=== PATIENT | male | born 1960 | race Caucasian/White ===

== ENCOUNTER 2022-08-23 07:22 | Emergency (ER) | payer MEDICARE ==
[2022-08-23 07:37] VITALS: RESP 20; TEMP 98
[2022-08-23] MEDS ORDERED: methylPREDNISolone SOD SUCCI 125 MG/2 ML VIAL IM ONE (07:47)
[2022-08-23] MEDS ORDERED: KETOROLAC 15 MG/ML 1 ML VIAL IM STA (07:47)
--- NOTE | 2022-08-23 07:49 | ED ---
General Adult HPI - General Chief complaint: Extremity Problem,Nontraumatic Stated complaint: Right wrist pain Time Seen by Provider: 08/23/22 07:38 Source: patient, RN notes reviewed Mode of arrival: ambulatory Limitations: no limitations - History of Present Illness Initial comments: Patient is a pleasant 62-year-old male presenting to the emergency department with concerns with right wrist pain. Onset of symptoms to couple days ago while doing aluminum work on the garage. Patient did take one steroid dose with improvement of symptoms however symptoms have returned. Patient feels swollen. Discomfort is greatly increased with movement and mild at rest. Patient does have history of similar symptoms previously with his left wrist and needed carpal tunnel surgery. Patient does have some chronic arthritis however not as significant as this. No erythema. No fever. - Related Data Allergies Allergy/AdvReac Type Severity Reaction Status Date / Time No Known Allergies Allergy Verified 08/23/22 07:36 Review of Systems ROS Statement: Those systems with pertinent positive or pertinent negative responses have been documented in the HPI. ROS Other: All systems not noted in ROS Statement are negative. Constitutional: Denies: fever Eyes: Denies: eye pain ENT: Denies: ear pain Respiratory: Denies: cough Cardiovascular: Denies: chest pain Endocrine: Denies: fatigue Gastrointestinal: Denies: abdominal pain Genitourinary: Denies: dysuria Musculoskeletal: Reports: as per HPI Skin: Denies: rash Past Medical History Past Medical History: No Reported History History of Any Multi-Drug Resistant Organisms: None Reported Past Surgical History: Adenoidectomy, Cholecystectomy, Joint Replacement, Orthopedic Surgery, Tonsillectomy Additional Past Surgical History / Comment(s): Spinal fusion Past Psychological History: No Psychological Hx Reported Smoking Status: Current every day smoker Past Alcohol Use History: Occasional Past Drug Use History: None Reported General Exam Limitations: no limitations General appearance: alert, in no apparent distress Head exam: Present: normocephalic Eye exam: Present: normal appearance Neck exam: Present: normal inspection Respiratory exam: Present: normal lung sounds bilaterally Cardiovascular Exam: Present: regular rate, normal rhythm Expanded Peripheral pulses: 2+: Radial (R) GI/Abdominal exam: Present: soft. Absent: tenderness Extremities exam: Present: tenderness (Right wrist, diffuse. Some tenderness right dorsal thenar eminence.), other (Range of motion slightly limited secondary to pain. [employer] strength also limited by pain. No erythema. No warmth. ) Neurological exam: Present: alert Psychiatric exam: Present: normal affect, normal mood Skin exam: Present: normal color. Absent: rash, erythema Course Vital Signs 08/23/22 07:34 Temperature 98 F Pulse Rate 76 Respiratory 20 Rate Blood Pressure 191/102 O2 Sat by Pulse 99 Oximetry Procedures - Orthopedic Splinting/Casting Injury #1 Side: right Upper Extremity Injury Location: short arm, wrist Upper Extremity Immobilizer: volar splint Medical Decision Making - Radiology Data Radiology results: image reviewed (Hemorrhage also took by myself reveals apparent arthritis.) Disposition Clinical Impression: Wrist arthralgia Disposition: HOME SELF-CARE Condition: Stable Instructions (If sedation given, give patient instructions): Wrist Injury (ED), Osteoarthritis (ED) Additional Instructions: Please follow-up with primary care physician and orthopedics being the week. Ice to affected area. Take prednisone from home, 20 mg daily for 4 days total. Return for increased pain, swelling, color change, fever, worsening symptoms or other concerns. Is patient prescribed a controlled substance at d/c from ED?: No Referrals: Nonstaff,Physician [Primary Care Provider] - 1-2 days Antony Adhikari PAC [PHYSICIAN SMT TECHNICIAN] - 1-2 days Time of Disposition: 08:38
--- NOTE | 2022-08-23 08:21 | XR ---
EXAMINATION TYPE: XR wrist complete RT DATE OF EXAM: 08/23/2022 CLINICAL HISTORY: pain TECHNIQUE: Frontal, lateral and oblique images of the right wrist are obtained. COMPARISON: None. FINDINGS: There is no acute fracture/dislocation evident. IMPRESSION: There is no acute fracture seen. There is a degenerative change of the radiocarpal joint space and ra dioulnar joint spaces. On the lateral projection there is a dorsal placement of the distal ulna relat dorothy to the radius likely related to chronic subluxation. Correlate clinically. There is remodeling of the medial surface of the distal radius. Hypertrophic changes of the ulna. Soft tissue swelling seen . Intercarpal joint space narrowing noted as well. Moderate degenerative change of first carpal metac arpal joint space. IMPRESSION: 1. No evidence for acute fracture. 2. Advanced degenerative changes as discussed above. ICD 10 NO FRACTURE, INITIAL EVALUATION
[2022-08-23 09:13] VITALS: BP 148/98; PULSE 72
== END 2022-08-23 08:50 | disposition home or self-care (01) ==
LOC: EC 07:22
DX: M25.531 Pain in right wrist (principal); F17.200 Nicotine dependence, unspecified, uncomplicated
CPT/HCPCS: 99283; 29125; 73110; 96372 ×2; J2930; J1885

== ENCOUNTER 2023-01-23 05:45 | Emergency (ER) | payer MEDICARE ==
[2023-01-23 05:54] VITALS: RESP 18; TEMP 97.7
[2023-01-23] MEDS ORDERED: methylPREDNISolone SOD SUCCI 125 MG/2 ML VIAL IM ONE (06:04)
[2023-01-23] MEDS ORDERED: KETOROLAC 15 MG/ML 1 ML VIAL IM STA (06:04)
--- NOTE | 2023-01-23 06:17 | ED ---
Extremity Problem HPI - General Chief complaint: Extremity Problem,Nontraumatic Stated complaint: Right Wrist Pain Time Seen by Provider: 01/23/23 05:56 Source: patient, RN notes reviewed Mode of arrival: ambulatory Limitations: no limitations - History of Present Illness Initial comments: This is a 62-year-old male who presents to the emergency department for right wrist pain. Denies any injuries. Patient reports a history of arthritis in the right wrist. States that he was evaluated here last year in August for the same problem. He received a shot of steroids followed by a prescription for prednisone and put in a splint. States that this was very helpful. He tried to follow up with orthopedics, but states that they continued to play phone tag. Over the last day, he states that it has started to swell and flareup again. He did rewrap the wrist in the splint that he was given last time. States that keeping it immobilized has been helpful. However he states that the pain has kept him up at night. Denies any fevers, chills, sore throat, cough, dyspnea, chest pain, palpitations, abdominal pain, nausea, vomiting, diarrhea, back pain, or headaches. MD Complaint: extremity pain, extremity swelling Location: right, upper extremity History of Same: Yes - Related Data Home Medications Medication Instructions Recorded Confirmed Omeprazole 40 mg PO DAILY 11/25/22 11/26/22 lisinopriL [Zestril] 20 mg PO DAILY 11/25/22 11/26/22 predniSONE 5 mg PO DAILY PRN 11/25/22 11/26/22 Previous Rx's Medication Instructions Recorded predniSONE [Deltasone] 20 mg PO BID 4 Days #8 tab 01/23/23 Allergies Allergy/AdvReac Type Severity Reaction Status Date / Time No Known Allergies Allergy Verified 11/26/22 11:43 Review of Systems ROS Statement: Those systems with pertinent positive or pertinent negative responses have been documented in the HPI. ROS Other: All systems not noted in ROS Statement are negative. Past Medical History Past Medical History: GERD/Reflux, Hypertension, Osteoarthritis (OA), Sleep Apnea/CPAP/BIPAP Additional Past Medical History / Comment(s): heartburn worse around michelle after stopping heartburn meds. started again. does not use CPAP. History of Any Multi-Drug Resistant Organisms: None Reported Past Surgical History: Adenoidectomy, Cholecystectomy, Coronary Bypass/CABG, Orthopedic Surgery, Tonsillectomy Additional Past Surgical History / Comment(s): Spinal fusion x3. 5 total carpal tunnel surgeries. ( both sides) Past Anesthesia/Blood Transfusion Reactions: No Reported Reaction Past Psychological History: No Psychological Hx Reported Smoking Status: Current every day smoker Past Alcohol Use History: None Reported Past Drug Use History: None Reported - Past Family History Father Family Medical History: Coronary Artery Disease (CAD) Mother Family Medical History: Dementia General Exam Limitations: no limitations General appearance: alert, in no apparent distress Head exam: Present: atraumatic, normocephalic, normal inspection Respiratory exam: Present: normal lung sounds bilaterally. Absent: respiratory distress, wheezes, rales, rhonchi, stridor Cardiovascular Exam: Present: regular rate, normal rhythm, normal heart sounds. Absent: systolic murmur, diastolic murmur, rubs, gallop, clicks Extremities exam: Present: other (Tenderness and swelling to the right wrist and dorsal aspect of the right hand. 2+ radial pulses and capillary refill <1 second.) Neurological exam: Present: alert, oriented X3, CN II-XII intact Psychiatric exam: Present: normal affect, normal mood Skin exam: Present: warm, dry, intact, normal color. Absent: rash Course Vital Signs 01/23/23 01/23/23 05:51 07:26 Temperature 97.7 F 97.7 F Pulse Rate 75 74 Respiratory 18 18 Rate Blood Pressure 199/108 173/95 O2 Sat by Pulse 98 97 Oximetry Medical Decision Making - Medical Decision Making This is a 62-year-old male who presents to the emergency department for right wrist pain. Was pt. sent in by a medical professional or institution? @ -No Did you speak to anyone other than the patient for history? @ -No Did you review nursing and triage notes? @ -Yes, and I agree, it is accurate with regards to the patient's symptoms. Were old charts reviewed? @ -No Differential Diagnosis? @ -Differential wrist pain: Fracture, dislocation, contusion, DVT, OA, RA, this is not meant to be an all- inclusive list. X-rays interpreted by me (1pt min.)? @ -X-rays of right wrist obtained. My interpretation identifies degenerative changes and no acute fractures. What testing was considered but not performed? (CT, X-rays, U/S, labs)? Why? @ -None What meds were considered but not given? Why? @ -None Did you discuss the management of the patient with other professionals? @ -No Did you reconcile home meds? @ -No Was smoking cessation discussed for >3mins.? @ -No Was critical care preformed (if so, how long)? @ -No Were there social determinants of health that impacted care today? How? (Homelessness, low income, unemployed, alcoholism, drug addiction, transportation, low edu. Level, literacy, decrease access to med. care, skilled nursing, rehab)? @ -No Was there de-escalation of care discussed even if they declined? (Discuss DNR or withdrawal of care, Hospice)? @ -No What co-morbidities impacted this encounter? (DM, HTN, Smoking, COPD, CAD, Cancer, CVA, Hep., AIDS, mental health diagnosis, sleep apnea, morbid obesity)? @ -OA Was patient admitted / discharged? @ -Discharged. Repeat x-rays obtained revealing stable degenerative changes. He was given IM Solu-Medrol and Toradol, which is what he received last time and he states was effective. Prescription for prednisone provided with dosing instructions reviewed. He is instructed to avoid taking over the counter antiinflammatories when taking the Prednisone and to only take it with Tylenol. Information for orthopedic follow-up provided, advised he try contacting them again for a follow-up appointment. Undiagnosed new problem with uncertain prognosis? @ -None Drug Therapy requiring intensive monitoring for toxicity (Heparin, Nitro, Insulin, Cardizem)? @ -None Were any procedures done? @ -None Diagnosis/symptom? @ -Right wrist osteoarthritis Acute, or Chronic, or Acute on Chronic? @ -Acute Uncomplicated (without systemic symptoms) or Complicated (systemic symptoms)? @ -Uncomplicated Side effects of treatment? @ -None Exacerbation, Progression, or Severe Exacerbation] @ -Not applicable Poses a threat to life or bodily function? @ -This is having some impact on his ability to use the right wrist. Return precautions reviewed in depth, the patient is instructed to return to the emergency department with any new, worsening, or concerning symptoms. Patient verbalized understanding. This case was discussed in detail with the attending ED physician, Dr. Callejas. Presentation, findings, and treatment plan discussed in detail as well. - Radiology Data Radiology results: report reviewed, image reviewed Disposition Clinical Impression: Osteoarthritis of right wrist Disposition: HOME SELF-CARE Instructions (If sedation given, give patient instructions): Osteoarthritis (ED) Additional Instructions: Return to the emergency department with any new, worsening, or concerning symptoms. Take the prednisone as prescribed for 4 days. Take your first dose tomorrow, as you already received a steroid in the emergency department. Do not take any [id number] anti-inflammatories with the prednisone. You may take Tylenol with this. I listed two orthopedic providers below. You can try contacting both offices to see who can get you in sooner. Follow up with your primary care provider in 1-2 days. Prescriptions: predniSONE [Deltasone] 20 mg PO BID 4 Days #8 tab Is patient prescribed a controlled substance at d/c from ED?: No Referrals: Jazmine Ness MD [Primary Care Provider] - 1-2 days Radu Forbes DO [Doctor of Osteopathic Medicine] - 1-2 days Lesia Hinson DO [Doctor of Osteopathic Medicine] - 1-2 days
[2023-01-23] MEDS ORDERED: ACET/COD 300 MG/30 MG STARTER PACK 6 TAB BTL PO STA (06:53)
--- NOTE | 2023-01-23 07:14 | XR ---
EXAMINATION TYPE: XR wrist complete RT DATE OF EXAM: 01/23/2023 6:22 AM INDICATION: Patient age:Male; 62 years old; Reason for study: Pain and swelling; COMPARISON: 08/23/2022 TECHNIQUE: right wrist was examined in the. Frontal, navicular, lateral, and oblique. FINDINGS: Formation of the distal radioulnar joint with osteophyte formation. Additional degeneration changes of the joints of the wrist. No acute osseous pathology, joint dislocation, or joint effusion . No evidence of any soft tissue swelling is seen. IMPRESSION: 1. No acute osseous pathology. 2. Moderate to severe degeneration similar to prior on 08/23/2022 with chronic deformity of the dist al radioulnar joint.. Consider MRI for further evaluation.
[2023-01-23 07:30] VITALS: BP 173/95; PULSE 74
== END 2023-01-23 07:30 | disposition home or self-care (01) ==
LOC: EC 05:45
DX: M19.031 Primary osteoarthritis, right wrist (principal); K21.9 Gastro-esophageal reflux disease without esophagitis; I10 Essential (primary) hypertension; M19.90 Unspecified osteoarthritis, unspecified site; F17.200 Nicotine dependence, unspecified, uncomplicated; Z79.899 Other long term (current) drug therapy
CPT/HCPCS: 73110; 99283; 96372 ×2; J2930; J1885

== ENCOUNTER → 2023-05-22 | Outpatient (CLI) | payer MEDICARE ==
[2023-05-22 16:04] LABS: ALT 16 U/L (10-49); AST 24 U/L (14-35); Chol/HDL Ratio 2.36 Ratio; LDL Cholesterol,Calculated 96.3 mg/dL (0.0-131.0)
== END | disposition home or self-care (01) ==
LOC: LABWHC1 09:14
PROVIDERS: ATTEND Internal Medicine Cardiovascular Disease
DX: E78.2 Mixed hyperlipidemia (principal)
CPT/HCPCS: 36415; 80061; 84450; 84460

== ENCOUNTER → 2023-05-28 | Outpatient (CLI) | payer MEDICARE ==
--- NOTE | 2023-05-28 10:27 | MR ---
EXAMINATION TYPE: MR Prostate wo/w con DATE OF EXAM: 05/28/2023 9:35 AM COMPARISON: None. CLINICAL INDICATION:Male, 63 years old with history of C61 prostate ca; [facility] TECHNIQUE: Multi-planar, multi-sequence imaging of the pelvis is performed prior to and following the uncomplicated administration of bolus intravenous gadolinium. CONTRAST: 8 cc of Gadavist Interpretive Criteria: PI-RADS v2.1 SERUM PSA: 13.08 on 01/19/2023. SURGICAL PATHOLOGY: Positive biopsy on 04/20/2023 involving multiple sites F - L on the left 3+4 [place] 7. FINDINGS: Prostatic dimensions: 4.1 x 3.1 x 2.9 cm. "Bullet" Volume: 24.12 (PSA density=0.54 ng/mL/mL) CENTRAL GLAND (Central and Transition Zones/CZ+TZ): Post TURP changes to the central gland. No significant central gland remains. (PI-RADS 2) PERIPHERAL ZONE (PZ): Area of low T2 signal within the left posterior peripheral zone mid gland and base with high DWI low ADC signal measuring at least 20 x 12 x 21 mm. There is arterial enhancement of this lesion. (PI-RADS 5) SEMINAL VESICLES (SV): Symmetric and unremarkable. PERIPROSTATIC TISSUES: Unremarkable. LYMPH NODES: Right external iliac lymph node is prominent measuring up to 10 mm in short axis. REMAINING PELVIS: Circumferential bladder wall thickening with trabeculations likely secondary to chronic bladder outfl ow obstruction and decompressed nature. No abnormal free or organized intrapelvic fluid collection. No pathologic bowel dilation or mural thickening. OSSEOUS STRUCTURES: No suspicious osseous abnormality. Right fixation hardware. IMPRESSION: 1. PI-RADS 5 lesion left peripheral zone, mid gland and base measuring up to 20 x 12 x 21 mm. 2. Indeterminate right external iliac lymph node. Consider nuclear medicine gallium-68 PSMA scan for further evaluation.
== END | disposition home or self-care (01) ==
LOC: RADMRIMAIN 08:34
PROVIDERS: ATTEND Urology
DX: C61 Malignant neoplasm of prostate (principal)
CPT/HCPCS: 72197; A9585

== ENCOUNTER → 2023-07-13 | Outpatient (CLI) | payer MEDICARE ==
[2023-07-13 16:20] LABS: Appearance,Urine Clear (Clear); Bilirubin,Urine Negative (Negative); Blood,Urine Negative (Negative); Color,Urine Colorless; Glucose,Urine (UA) Negative (Negative); Ketones,Urine Negative (Negative); Leukocyte Esterase,Urine Negative (Negative); Nitrite,Urine Negative (Negative); Protein,Urine Negative (Negative); Specific Gravity,Urine 1.011 (1.001-1.035); Urobilinogen,Urine <2.0 mg/dL (<2.0)
[2023-07-13 21:25] LABS: BUN/Creat Ratio 12.58 Ratio (12.00-20.00); Blood Urea Nitrogen 15.1 mg/dL (9.0-27.0); Calcium 9.6 mg/dL (8.7-10.3); Carbon Dioxide 28.3 mmol/L (21.6-31.8); Chloride 105 mmol/L (96-109); Glucose 85 mg/dL (70-110); Potassium 4.7 mmol/L (3.5-5.5); Sodium 143 mmol/L (135-145)
[2023-07-13 22:30] LABS: Basophils # (A) 0.05 X 10*3/uL (0.00-0.10); Basophils % (A) 0.9 %; Eosinophils # (A) 0.14 X 10*3/uL (0.04-0.35); Eosinophils % (A) 2.5 %; HCT 43.3 % (39.6-50.0); HGB 13.7 d/dL (13.0-17.0); Lymphocytes # (A) 1.63 X 10*3/uL (0.90-5.00); Lymphocytes % (A) 28.9 %; MCH 30.4 pg (27.0-32.0); MCHC 31.6 d/dL (32.0-37.0); Mean Platelet Volume 11.1 FL (9.5-12.2); Monocytes % (A) 8.9 %; NRBC Per 100 WBC 0 X 10*3/uL (0.00-0.01); Neutrophils % (A) 58.4 %; Platelet Count 233 X 10*3/uL (140-440); RBC 4.51 X 10*6/uL (4.40-5.60); WBC 5.64 X 10*3/uL (4.50-10.00)
== END | disposition home or self-care (01) ==
LOC: LABPAT 13:10
PROVIDERS: ATTEND Urology
DX: Z01.812 Encounter for preprocedural laboratory examination (principal); C61 Malignant neoplasm of prostate; R35.0 Frequency of micturition
CPT/HCPCS: 36415; 80048; 81003; 85025; 86850; 86900; 86901; 87086

== ENCOUNTER 2023-07-16 09:49 | Day surgery (SDC) | payer MEDICARE ==
[2023-07-14 11:45] VITALS: BMI 24.6
[~2023-07-16 09:49] MED LIST: DEXAMETHASONE SOD PHOSPHATE 4 MG/ML 1 ML VIAL IV ONE; HEPARIN SODIUM,PORCINE/PF 5,000 UNIT/0.5 ML SYRINGE SQ PRN; HYDROmorphone 0.5 MG/0.5 ML SYRINGE IVP PRN; LIDOCAINE 1% (10MG/ML) FOR IV START INTRADERMA PRN; MIDAZOLAM 2 MG/2 ML VIAL IV PRN; ONDANSETRON 4 MG/2 ML VIAL IVP ONE; fentaNYL (PF) 50 MCG/ML 2 ML AMP IVP PRN
[2023-07-16] MEDS: LACTATED RINGERS 1,000 ML IV SCH (09:56)
[2023-07-16] MEDS ORDERED: fentaNYL (PF) 50 MCG/ML 2 ML AMP IVP ONE (10:43)
[2023-07-16] MEDS ORDERED: MIDAZOLAM 2 MG/2 ML VIAL IVP ONE (10:43)
--- NOTE | 2023-07-16 10:58 | P.ANPRN ---
Procedure Note - Anesthesia - Nerve Block Performed Bilateral Erector Spinae Single Time Out Performed: Yes (1043) Date of Procedure: 07/16/23 Procedure Start Time: 10:44 Procedure Stop Time: 10:51 Location of Patient: PreOp Indication: Acute Post-Operative Pain, Requested by Surgeon Specifically requested for management of pain by : Frank Rodriguez Sedation Type: Sedate with meaningful contact maintained Preparation: Sterile Prep Position: Prone Catheter: None Needle Types: Pajunk Needle Gauge: 21 Ultrasound used to visualize needle placement: Yes Ultrasound used to observe medication spread: Yes Injectate: 0.5% Ropivacaine (see comment for volume) (30cc) Blood Aspirated: No Pain Paresthesia on Injection Noted: No Resistance on Injection: Normal Image Stored and Saved: Yes Events: Uneventful and Well Tolerated
[2023-07-16] MEDS ORDERED: HYDROmorphone 1 MG/ML 1 ML SYRINGE IVP PRN (11:38)
[2023-07-16] MEDS ORDERED: ONDANSETRON 4 MG/2 ML VIAL IVP PRN (11:38)
--- NOTE | 2023-07-16 11:38 | P.HPIHPCON ---
History of Present Illness H&P Date: 07/16/23 Chief Complaint: Prostate cancer This is a 63 yo with hx of [place] 7 prostate cancer. Option of a robotic radical prostatectomy versus radiation therapy was discussed with him in detail. He agreed to proceed with a robotic radical prostatectomy. Aware the risk which includes but not limited to bleeding, infection, injury to nearby organs. Risk of erectile dysfunction and urinary incontinence as discussed with him. Discussed also potential of needing additional treatment for the prostate cancer. Risk of anesthesia was also discussed with him. He understood all the risk and agreed to proceed Consent for Procedure: I have explained the operation/procedure to the patient, including the risks, benefits, side effects, alternative therapies (including not receiving the proposed treatment or service), the likelihood of the patient achieving his/her goals, and potential recuperation problems for the procedure/sedation/analgesia, as well as any blood products, if indicated. I also explained to the patient the risks, benefits and side effects of the alternatives, as well as the risks related to not receiving the proposed procedure, care, treatment, or services. Past Medical History Past Medical History: Cancer, GERD/Reflux, Hypertension, Osteoarthritis (OA), Sleep Apnea/CPAP/BIPAP Additional Past Medical History / Comment(s): does not use CPAP. PROSTATE CANCER History of Any Multi-Drug Resistant Organisms: None Reported Past Surgical History: Adenoidectomy, Back Surgery, Cholecystectomy, Coronary Bypass/CABG, Orthopedic Surgery, Tonsillectomy Additional Past Surgical History / Comment(s): Spinal fusion x3, 5 total carpal tunnel surgeries Past Anesthesia/Blood Transfusion Reactions: No Reported Reaction Past Psychological History: No Psychological Hx Reported Smoking Status: Current every day smoker Past Alcohol Use History: None Reported Additional Past Alcohol Use History / Comment(s): started at 47 yrs old 1 10/13 ppd Past Drug Use History: None Reported - Past Family History Father Family Medical History: Coronary Artery Disease (CAD) Mother Family Medical History: Dementia Brother(s) Family Medical History: Coronary Artery Disease (CAD) Medications and Allergies Home Medications Medication Instructions Recorded Confirmed Type Omeprazole 40 mg PO DAILY 11/25/22 07/16/23 History lisinopriL [Zestril] 20 mg PO DAILY 11/25/22 07/16/23 History Aspirin [[place] Aspirin EC] 81 mg PO DAILY 07/14/23 07/16/23 History Allergies Allergy/AdvReac Type Severity Reaction Status Date / Time No Known Allergies Allergy Verified 07/16/23 09:52 Surgical - Exam Vital Signs Temp Pulse Resp BP Pulse Ox 97.2 F L 70 18 134/82 97 07/16/23 10:02 07/16/23 10:02 07/16/23 10:02 07/16/23 10:02 07/16/23 10:02 - General no distress, no pain - Eyes normal ocular movement, no pale - ENT normal nares, normal mucosa - Respiratory normal expansion, normal respiratory effort - Abdomen Abdomen: soft, non tender Assessment and Plan Assessment: OR for robotic radical prostatectomy with pelvic lymph node dissection
[2023-07-16] MEDS ORDERED: NEOSTIGMINE 1 MG/ML 10 ML VIAL ONE (12:16)
[2023-07-16] MEDS ORDERED: fentaNYL (PF) 50 MCG/ML 2 ML AMP ONE (12:16)
[2023-07-16] MEDS ORDERED: LIDOCAINE 1% INJ 10MG/ML (20 ML MDV) ONE (12:16)
[2023-07-16] MEDS ORDERED: SODIUM CHLORIDE 0.9% (PF) 10 ML VIAL ONE (12:16)
[2023-07-16] MEDS ORDERED: PROPOFOL 10 MG/ML 20 ML VIAL IV ONE (12:16)
[2023-07-16] MEDS ORDERED: KETAMINE HCL IN 0.9 % NACL 50 MG/5 ML SYRINGE ONE (12:16)
[2023-07-16] MEDS ORDERED: ePHEDrine 50 MG/ML 1 ML VIAL ONE (12:16)
[2023-07-16] MEDS ORDERED: ROCURONIUM 10 MG/ML (5 ML VIAL) IV ONE (12:16)
[2023-07-16] MEDS ORDERED: MIDAZOLAM 2 MG/2 ML VIAL ONE (12:16)
[2023-07-16] MEDS ORDERED: ROPIVACAINE 5 MG/ML 30 ML VIAL ONE (12:16)
[2023-07-16] MEDS ORDERED: HYDROmorphone (PF) 1 MG/ML ONE (12:16)
[2023-07-16] MEDS ORDERED: SUCCINYLCHOLINE CHLORIDE 200 MG/10 ML VIAL IV ONE (12:16)
[2023-07-16] MEDS ORDERED: GLYCOPYRROLATE 0.2 MG/ML 2 ML VIAL ONE (12:16)
[2023-07-16] MEDS ORDERED: PHENYLEPHRINE-0.9% NACL SYG 1,000 MCG/10 ML SYRINGE ONE (12:16)
[2023-07-16] MEDS ORDERED: BUPIVACAINE (PF) 0.25% 30 ML VIAL SQ ONE ×2 (12:21)
[2023-07-16] MEDS ORDERED: LACTATED RINGERS 1,000 ML IV ONE (13:45)
--- NOTE | 2023-07-16 15:28 | P.OP ---
Date of Procedure: 07/16/23 Preoperative Diagnosis: Prostate cancer Postoperative Diagnosis: Same Procedure(s) Performed: Robotic radical prostatectomy, with bilateral pelvic lymph node dissection Implants: None Anesthesia: KIKAA Surgeon: Frank Rodriguez School Bus Technician #1: Bethany Cervantes Estimated Blood Loss (ml): 100 Pathology: other (Prostate, bilateral seminal vesicle, bilateral pelvic lymph nodes) Condition: stable Disposition: PACU Indications for Procedure: This is a 63 yo with hx of [place] 7 prostate cancer. Option of a robotic radical prostatectomy versus radiation therapy was discussed with him in detail. He agreed to proceed with a robotic radical prostatectomy. Aware the risk which includes but not limited to bleeding, infection, injury to nearby organs. Risk of erectile dysfunction and urinary incontinence as discussed with him. Discussed also potential of needing additional treatment for the prostate cancer. Risk of anesthesia was also discussed with him. He understood all the risk and agreed to proceed Description of Procedure: After preoperative antibiotics were started, the patient was taken to the operating room. Anesthesia was induced and the patient was placed in a low lithitomy position, with adequate padding of the pressure points, shoulders, back, legs and arms. He was then prepped and draped in the standard fashion. A critical pause was performed using two patient identifiers. A 16F bender catheter was placed to gravity drainage. A pneumo-peritoneum was created with placement of a Veress needle to 20 mm Hg without complication, and a 8 Fr trocar was placed above the umbillicus. Under direct vision a 8mm robotic ports was placed lateral to each rectus slightly below the camera port. The left iliac fossa 8mm port was placed. The right product safety technical assistant right iliac fossa 12mm port and right paramedian 5mm portwere placed. After the patient was placed in the trendelenberg position, the robot was then docked to the 8mm robotic ports and then each robotic arm and tower was checked in relation to the patient's legs and hands to avoid inadvertent compression. The peritoneal cavity was inspected. An inverted U-shaped incision began laterally to the left medial umbilical ligament and extended high across the midline to the right umbilical ligament. The limbs of the "U" extended to the level of the vasa on both sides. We next developed the preperitoneal space and the space of Retzius. Cautery was used to dissected the bladder away from the prostate. After the anterior bladder neck was incised and the bladder entered the the posterior bladder neck was exposed and the ureteral orifces identified. Patient did have a TURP defect The posterior bladder neck was then incised and dissected away from the prostate. The vas and the seminal vesicles were now exposed and dissected to their insertions into the prostate and were not spared. The posterior layer of the Denonvillier's fascia was incised to enter megan the plane between prostate and perirectal fat. Each lateral pedicle was controlled with vessel sealer. No nerve preservation was performed. The puboprostatic ligament was incised where it inserted into the apex of the prostate and a plane between urethra and dorsal venous complex developed to expose the anterior urethral surface. The anterior wall of the urethra was transected with the cut setting a few millimeters distal to the apex of the prostate. The dorsal vein was ligated using 3-0 V lock bilateral obturator and external iliac lymph node packets were carefully dissected after careful visualization of the hypogastric artery and obturator nerve. There was careful attention paid to hemostasis with judicious use of cautery. The urethrovesical anastomosis was performed . the posterior denovillers was reapproximated using 3-0 V lock. A 9and 9inch 3-0 V-Lock suture was used to anastomose the urethra and bladder, starting at the 6:00 posterior position. Mucosa was secured in every stitch, to ensure a mucosa to mucosa anastomosis. The stitch was regularly cinched and the anastomosis tightened. Care was taken to not violate the ureteral orifices. The Bender catheter was advanced, the bladder filled, and the anastomosis was tested, as described above. Anastomsis was watertight at 200 mL The periumbilical fascia was closed with 1-0-PDS suture in running fashion. All ports were closed with a subcuticular 4-0 monocryl and Dermabond. Sponge, instrument, and needle counts were correct at the end of the case x2. All specimens including prostate and lymph nodes were sent to pathology for diagnosis and will be available in a week. The patient tolerated the surgery well and without complication. He awoke without difficulty and was taken to the recovery room in stable condition
[2023-07-16] MEDS: KETOROLAC 15 MG/ML 1 ML VIAL IVP SCH ×3 (16:28→23:29)
[2023-07-16] MEDS: D5-0.45% NACL WITH KCL 20MEQ/L 1,000 ML IV SCH ×2 (18:00→23:23)
[2023-07-16] MEDS: HEPARIN SODIUM,PORCINE 5,000 UNIT/ML 1 ML VIAL SQ SCH (21:49)
[2023-07-17] MEDS: HEPARIN SODIUM,PORCINE 5,000 UNIT/ML 1 ML VIAL SQ SCH ×2 (03:37→08:51)
[2023-07-17] MEDS: KETOROLAC 15 MG/ML 1 ML VIAL IVP SCH (06:24)
--- NOTE | 2023-07-17 07:49 | P.DS ---
Providers Attending physician: Frank Rodriguez MD Primary care physician: Jazmine Ness MD Hospital Course: The patient was admitted the hospital 07/16/23 for a robotic-assisted prostatectomy. He underwent this without difficulty. His postoperative course was uneventful. His diet was advanced. He ambulated. His abdomen is soft. His pain is under control. The urine is clear. He'll be discharged home on Toradol. His condition is good. Postoperative instructions of been given. He'll follow-up in the office in one week. Pathology report is pending. Patient Condition at Discharge: Good Plan - Discharge Summary Discharge Rx Participant: No New Discharge Prescriptions: New Ketorolac [Toradol] 10 mg PO Q6HR PRN #14 tab PRN Reason: Pain Control No Action Omeprazole 40 mg PO DAILY lisinopriL [Zestril] 20 mg PO DAILY Aspirin [[place] Aspirin EC] 81 mg PO DAILY Discharge Medication List Omeprazole 40 mg PO DAILY 11/25/22 [History] lisinopriL [Zestril] 20 mg PO DAILY 11/25/22 [History] Aspirin [[place] Aspirin EC] 81 mg PO DAILY 07/14/23 [History] Ketorolac [Toradol] 10 mg PO Q6HR PRN #14 tab 07/17/23 [Rx] Follow up Appointment(s)/Referral(s): Frank Rodriguez MD [STAFF PHYSICIAN] - 1 Week Discharge Disposition: HOME SELF-CARE
[2023-07-17] MEDS: D5-0.45% NACL WITH KCL 20MEQ/L 1,000 ML IV SCH (08:50)
[2023-07-17] MEDS: LACTATED RINGERS 1,000 ML IV SCH (08:51)
[2023-07-17] MEDS ORDERED: PANTOPRAZOLE 40 MG TABLET PO SCH (09:00)
[2023-07-17] MEDS ORDERED: lisinopriL 20 MG TAB PO SCH (09:00)
[2023-07-17 09:06] VITALS: BP 146/61; PULSE 60; RESP 16; TEMP 97.8
== END 2023-07-17 10:18 | disposition home or self-care (01) ==
LOC: OR 09:49 → 4SSUR 15:24 → OR 07-17 10:18
PROVIDERS: ATTEND Urology
DX: C61 Malignant neoplasm of prostate (principal); G89.18 Other acute postprocedural pain; Z79.899 Other long term (current) drug therapy; Z79.82 Long term (current) use of aspirin
CPT/HCPCS: 64999; 55866; 38571; J2250; J0330; J1644 ×3; J1100; J2710; J2405; J2001; J3010; J1170 ×2; J2795; J1885 ×2; J2704; J2371; J0665; 88307; 88309

== ENCOUNTER → 2024-05-03 | Outpatient (CLI) | payer MEDICARE ==
--- NOTE | 2024-05-04 17:10 | MR ---
EXAMINATION TYPE: MR cervical spine wo con DATE OF EXAM: 05/03/2024 5:44 PM CLINICAL INDICATION:Male, 64 years old with history of M54.2,M54.10; PHH, Neck pain into both arms/fi ngers x1 year, Hx Prostate and skin cancer COMPARISON: None. TECHNIQUE: Multi planar, multi sequence imaging was performed utilizing: T1-weighted, T2-weighted, an d turbo inversion recovery imaging of the cervical spine. IV Contrast: cc (none if empty) FINDINGS: Alignment: The cervical vertebral bodies have preserved heights. Grade 1 anterolisthesis of C7 on T1. Bones: Postsurgical changes with fusion of C5-C6 and C7. There appears to be good osseous fusion at t hese levels. Hardware is present. Osteophytes and disc space narrowing most pronounced at the C5-C7 v ertebral levels. Cord: The spinal cord is unremarkable with regards to their signal intensity and morphology. Discs: Intervertebral disc signal is maintained. C2-C3: No significant disc pathology. The spinal canal is patent. Bilateral facet and uncovertebral joint arthropathy are present with mild left neural foraminal stenosis. The right neural foramen is p atent. C3-C4: No significant disc pathology. The spinal canal is patent. Bilateral facet and uncovertebral joint arthropathy are present with moderate bilateral moderate left and mild right neural foraminal s tenosis. C4-C5: No significant disc pathology. The spinal canal is patent. Bilateral facet and uncovertebral joint arthropathy are present with moderate to severe right. Neural foraminal stenosis. C5-C6: No significant disc pathology. The spinal canal is patent. Bilateral facet and uncovertebral joint arthropathy are present with mild left neural foraminal stenosis. The right neural foramen is p atent. C6-C7: No significant disc pathology. The spinal canal is patent. Bilateral facet and uncovertebral joint arthropathy are present with mild left neural foraminal stenosis. The right neural foramen is p atent. C7-T1: No significant disc pathology. The spinal canal is patent. No neural foraminal stenosis. Other: None. IMPRESSION: 1. No evidence for disc herniation or significant spinal canal stenosis. 2. Postsurgical changes with Mild to moderate disc degeneration with associated osteoarthritic change s. 3. Grade 1 anterolisthesis of C7 on T1.
== END | disposition home or self-care (01) ==
LOC: RADMRIMAIN 16:47
PROVIDERS: ATTEND Orthopaedic Surgery
DX: M54.10 Radiculopathy, site unspecified (principal); M50.30 Other cervical disc degeneration, unspecified cervical region
CPT/HCPCS: 72141

== ENCOUNTER 2024-05-20 07:00 | Day surgery (SDC) | payer MEDICARE ==
[~2024-05-20 07:00] MED LIST changes: -DEXAMETHASONE SOD PHOSPHATE 4 MG/ML 1 ML VIAL IV ONE; -HEPARIN SODIUM,PORCINE/PF 5,000 UNIT/0.5 ML SYRINGE SQ PRN; -HYDROmorphone 0.5 MG/0.5 ML SYRINGE IVP PRN; +LACTATED RINGERS 1,000 ML BAG ONE; -LIDOCAINE 1% (10MG/ML) FOR IV START INTRADERMA PRN; -MIDAZOLAM 2 MG/2 ML VIAL IV PRN; -ONDANSETRON 4 MG/2 ML VIAL IVP ONE; -fentaNYL (PF) 50 MCG/ML 2 ML AMP IVP PRN
[2024-05-20] MEDS ORDERED: PROPOFOL 10 MG/ML 20 ML VIAL IV ONE (07:03)
--- NOTE | 2024-06-10 17:20 | P.PCN ---
Date of Procedure: 05/20/24 Procedure(s) Performed: There is an addendum for the procedure that was performed on 05/20/2024. Procedure performed colonoscopy Procedure. Scope was advanced to the cecum. Careful examination was performed. Colonoscopy was within normal limits.
[2024-06-20] MEDS ORDERED: VERAPAMIL 2.5 MG/ML 2 ML AMP ONE (11:50)
[2024-06-20] MEDS ORDERED: fentaNYL (PF) 50 MCG/ML 2 ML AMP ONE (11:50)
[2024-06-20] MEDS ORDERED: LIDOCAINE 1% INJ 10MG/ML (20 ML MDV) ONE (11:50)
[2024-06-20] MEDS ORDERED: HEPARIN SODIUM 1,000 UN/ML (10ML VL) ONE (11:50)
== END 2024-05-20 08:19 ==
LOC: ORWHC2ENDO 07:00
PROVIDERS: ATTEND Internal Medicine Gastroenterology
DX: Z12.11 Encounter for screening for malignant neoplasm of colon
CPT/HCPCS: 45378

== ENCOUNTER → 2024-08-17 | Outpatient (CLI) | payer MEDICARE ==
--- NOTE | 2024-08-17 13:42 | CT ---
EXAMINATION TYPE: CT cervical spine wo con DATE OF EXAM: 08/17/2024 8:58 AM COMPARISON: None. CLINICAL INDICATION: Male, 64 years old with history of M62.81 MUSCLE WEAKNESS (GENERALIZED) M54.2, Neck pain x4 years. TECHNIQUE: Unenhanced CT of the cervical spine was performed with bone and soft tissue window setting s submitted. Coronal and sagittal reconstruction is obtained. CT DLP: 514 mGycm, Automated exposure control for dose reduction was used. IV Contrast: and , (none if empty) Oral Contrast: mL of , (none if empty) FINDINGS: C2-3: Disc space Within normal limits. Degenerative changes of the cervical apophyseal joints greater on the left. Mild left neural foraminal encroachment. No central stenosis. C3-4: Grade 1 anterolisthesis C3 on C4 measuring 2 mm. Mild to moderate degenerative disc space narro wing. Severe left-sided degenerative change of the cervical apophyseal joints resulting in moderate l eft foraminal encroachment. No herniation or central stenosis. C4-5: Moderate degenerative disc space narrowing with small left paracentral disc bulge or tiny protr usion. Moderate degenerative change of the right-sided cervical apophyseal joints with moderate right foraminal encroachment. No central stenosis. C5-6 and C6-7: Postoperative changes of anterior cervical discectomy and fusion. Postoperative alignm ent is anatomic at these levels. Minimal posterior hypertrophic change. No recurrent process seen. C7-T1: 2.3 mm anterolisthesis C7 on T1. Mild degenerative narrowing. No central stenosis or disc deep iation. No evidence for fracture or bony lesion. No soft tissue masses appreciated. IMPRESSION: 1. Degenerative changes as discussed. [facility], , 08/17/2024 1:40 PM
== END | disposition home or self-care (01) ==
LOC: RADCTMAIN 08:42
PROVIDERS: ATTEND Orthopaedic Surgery
DX: M47.812 Spondylosis without myelopathy or radiculopathy, cervical region (principal); M62.81 Muscle weakness (generalized); M54.2 Cervicalgia
CPT/HCPCS: 72125

== ENCOUNTER → 2024-12-13 | Outpatient (CLI) | payer MEDICARE ==
[2024-12-13 18:16] LABS: HCT 39.4 % (39.6-50.0); HGB 12.8 g/dL (13.0-17.0); MCH 30.5 pg (27.0-32.0); MCHC 32.5 g/dL (32.0-37.0); MCV 93.8 FL (80.0-97.0); Mean Platelet Volume 10.7 FL (9.5-12.2); NRBC Per 100 WBC 0 X 10*3/uL (0.00-0.01); Platelet Count 238 X 10*3/uL (140-440); RDW 15.6 % (11.5-14.5); WBC 4.74 X 10*3/uL (4.50-10.00)
[2024-12-13 18:31] LABS: BUN/Creat Ratio 18.67 Ratio (12.00-20.00); Blood Urea Nitrogen 16.8 mg/dL (9.0-27.0); Calcium 9.6 mg/dL (8.7-10.3); Carbon Dioxide 28.1 mmol/L (21.6-31.8); Chloride 103 mmol/L (96-109); Glucose 83 mg/dL (70-110); Potassium 4.6 mmol/L (3.5-5.5); Sodium 141 mmol/L (135-145)
== END | disposition home or self-care (01) ==
LOC: LABWHC1 14:40
PROVIDERS: ATTEND Orthopaedic Surgery
DX: Z01.812 Encounter for preprocedural laboratory examination (principal); Z22.322 Carrier or suspected carrier of Methicillin resistant Staphylococcus aureus; M50.20 Other cervical disc displacement, unspecified cervical region; Z79.899 Other long term (current) drug therapy; R58 Hemorrhage, not elsewhere classified
CPT/HCPCS: 36415; 80048; 85027; 86850; 86900; 86901; 87070

== ENCOUNTER 2024-12-20 07:44 | Day surgery (SDC) | payer MEDICARE ==
--- NOTE | 2024-12-20 06:09 | P.HPOR ---
History of Present Illness H&P Date: 12/20/24 .T:Title: PRE-OP H1 [facility] [address] [place] [address]| PROVIDER: DUSTY TAYLOR DO CLINICAL SUMMARY: Patient Profile:64-year-old male, Rasheed Wynn Previous cervical fusion (C5-C7) in 2011 Current VAS pain score: 7/10 Retired Quit smoking 6 months ago Current Condition: Experiencing progressive cervical pain and upper extremity symptoms over past 3 years Pain radiates from neck to shoulders and down arms to elbows bilaterally Reports arms going numb when lying down Failed conservative treatments including PT, medications, and injections Nair Clinical Findings: Positive Spurling's sign bilaterally Upper extremity weakness (4/5 in multiple muscle groups) Dermatomal deficits in C3-4 (right) and C4-5 (bilateral) Beginning cord signal changes noted on MRI Imaging Results: Severe central and bilateral foraminal stenosis at C3-4 and C4-5 Grade I spondylolisthesis at C3-4 and C7-T1 Adjacent segment disease above previous fusion Surgical Plan (Two-Stage Procedure): Stage 1: C3 through C5 anterior cervical discectomy and fusion Stage 2: C2 to T2 posterior lateral cervical decompression fusion Pre-operative Requirements: PCP clearance Labs (CBC, BMP) Chest X-ray EKG CT scan of cervical/thoracic region for surgical planning The patient has been informed of all surgical risks and benefits, including potential complications, and has agreed to proceed with the staged surgical approach. The procedure is deemed necessary due to failed conservative management, progressive neurological deficits, and documented spinal cord changes. DEMOGRAPHICS: Age: 64 year Height: 5'8" Weight: 161 lbs BP:/ BMI: 24.48 kg/m2 Occupation: Retired CC: cervical pain VAS: 7 HISTORY: Mr. Wynn presents to the office today, 09/21/24, for a pre-operative appointment preceding his C3 through C5 anterior cervical discectomy and fusion and C2 to T2 posterior lateral cervical decompression fusion. He had previous surgery back in 2011 for his neck and had a two level fusion by Dr. Monterroso out of [place]. He initially did well with this but over th past three years has started to deteriorate again and have more sx in his arms and neck that he had before. HE states pain in his neck at the base of his neck radiating out over his shouldres and down his arms to his elbows on both sides. He states his day to day ADLs make his pain worse and sometimes when he his laying down at night he feels his arms go completely numb. He states that things like motrin and tylenol used to work but now they do not and he seems to be progressing in his sx. 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 He states he needs a more permanent solution as he is retring in a few years and wants to be able to enjoy this and he is unable to do the things he enjoys now because of his neck. He denies any trauma to the neck. H8 Patient denies any f/c/sob/cp, perineal numbness or tingling, bowel, or bladder incontinence/retention. Patient is ambulatory P1 The patients past social, medical, family, surgical history, as well as review of systems, have been reviewed. Please refer to the History and Physical form that has been scanned into our electronic medical record system. R0 16 points review of systems completed and as stated in HPI, all other systems reviewed are negative. PAST TREATMENTS: PAST IMAGING: YES -MRI, XR TRAUMA RELATED: NO - WORK RELATED: NO - PT IN LAST 6 MONTHS: YES - PHYSICIAN DIRECTED HOME EXERCISE PROGRAM: YES -Has been doing and does not help, makes him worse most of the time. ACTIVITY MODIFICAITON: YES -did 2 rounds 12 sessions in the last 6-9 months without significant relief of sx. MEDICATIONS: YES -Motrin no longer helps. Tylenol can take some of the edge off but he has needed NOrco as of late. He has tried Flexeril for the shoulders but this does not help significantly just makes him tired. He states prednisone course briefly helped but that all sx came back. He requries a low dose inorder to function he states. ALTERNATIVE INTERVENTIONS (CHIROPRACTIC, ACCUPUNCTURE, MASSAGE, RICE): YES -Chiro in the past, refuses again BRACING: NO - INJECTIONS (AAKASH, TF, RFA): YES -Has had blocks previously, which help but are transient. MEDICAL HISTORY: Past Medical History: REVIEWED STATED IN CHART Past Surgical History: REVIEWED STATED IN CHART Social History: REVIEWED STATED IN CHART SMOKING: Quit smoking 6 mo ETOH: Occational SUBSTANCES: None Family History: REVIEWED STATED IN CHART P1 Current Medications: Rx: lisinopriL 20 mg tablet Ref: 0 Instructions: take 1 tablet (20 mg) by oral route once daily Rx: omeprazole 40 mg capsule,delayed release Ref: 0 Instructions: take 1 capsule (40 mg) by oral route once daily before a meal Rx: predniSONE 5 mg tablet Ref: 0 Instructions: take 2 a day prn Rx: predniSONE 5 mg tablet Ref: 0 Instructions: take 1 tablet (5 mg) by oral route once daily P1 PHYSICAL EXAM: General: AOX3, NAD, Well hydrate, well nourished HEENT: No lumps or masses Extremities: No color changes, no pooling INTEGUMENT: Appearance: Normal color and turgor Surgical Incisions: Hairy Patches: ABSENT Dorsal Skin Dimples: Normal [employer] spots: ABSENT PALPATION: TTP Midline: YES, base of neck SP C7-T1` Paracervical: Yes Parathoracic: NO Paralumbar: NO SIJ TESTING: NT POSTURAL BALANCE: Coronal: BALANCED Sagittal: BALANCED Shoulder height: LEVEL Pelvic Girdle: LEVEL ROM AND APPEARANCE: Neck: RESTRICTED Lumbar: UNRESTRICTED Shoulders: Symmetrical Hips: Symmetrical Knees: Symmetrical Hands: Symmetrical Feet: Symmetrical VASCULAR STATUS: PALPABLE PULSES B/L UE AND LE 2/4 RAD/ULNAR/DP/PT Edema: NONE NEUROLOGICAL EXAMINATION: Mental Status: Awake, alert, fully oriented with normal attention, tyrone ntration, and memory. Fluent appropriate speech. CRANIAL NERVES: I: Olfactory not assessed. II: Visual acuity normal, no visual field deficit noted with confrontation. III, IV: Normal pupillary reflexes & intact extraocular movements without nystagmus. V, : Intact symmetrical facial sensation. VII: Intact symmetrical facial motor movement: Hearing intact. IX, X: Intact gag, swallow, & normal voice. XI: Sternocleidomastoid, trapezius function intact. XII: Tongue midline with normal movements. TENSIONING: * L'HERMITTE'S SIG:NEG SPURLUNG'S SIGN:POS BL CUBITAL TUNNEL COMPRESSION:NEG TINELS AT WRIST:NEG STRAIGH LEG RAISE:NEG CONTRALATERAL STRAIGHT LEG RAISE: NEG MOTOR EXAM (0-5/5, NT) Muscle appearance: Symmetrical, without signs of atrophy or dystrophy UPPER EXTREMITY RIGHT LEFT Shoulder Abduction 4+ 4+ Biceps 5 4 Triceps 5 5 Wrist Extension 4 4 Hand Intrinsics 4 [address] Consultant 4 4 LOWER EXTREMITY RIGHT LEFT Hip Flexion 5 5 Knee Extension 5 5 Knee Flexion 5 5 Dorsiflexion 4+ 4+ Plantarflexion 5 5 EHL 5 5 FHL 5 5 REFLEXES (0-4/2, NT): RIGHT LEFT Bicep 2 2 Brachioradialis 3 2 Triceps 2 3 Patellar 2 2 Achilles 1 2 PATHOLOGICAL REFLEXES: RIGHT LEFT COREAS'S PRESENT ABSENT CLONUS ABSENT ABSENT BABINSKI ABSENT ABSENT RECTAL TONE: INTACT/NT SENSATION (0-4, NT): Sensation intact to LT and Pain * C5-T1 distribution BUE * L2-S2 distribution BLE *Exceptions below* DERMATOMAL DEFICIT/RADICULAR PATTERN: C4-5 BL; C3-4 RIGHT GAIT AND FUNCTIONAL EVALUATION: AMBULATORY AID NONE ROMBERG'S TEST INTACT HAND AND FINGER DEXTERITY INTACT YES DYSDIADOCHOKINESIA EXAM NEG B/L NO TOE/HEEL WALK INTACT WITH GOOD BALANCE MARGINAL SQUAT AND RISE W/O ASSISTANCE TO 60 DEG KNEE FLEXION MARGINAL SINGLE LEG STANCE INTACT TRENDELENBURG NEG IMAGING: XRAY Date: 04/25/24 Location: [facility] Region: CERVICAL Views: MULTIVIEW AP/LAT/FLEX/EXT/OB IMAGES ARE REVIEWED WITH THE PATIENT IN OFFICE AND DEMONSTRATE THE FOLLOWING: FINDINGS: Post surgical changes with fusion anteior C5-7. Good fusion block. Hardware appears intact and without failure or migration. C3-4 and C4-5 ASD severe with severe collapse, disc degeneration, anterior and post osteophytes At C7-T1 there is an unstable spondylolisthesis present with spondylosis and collapse of disc height. No fractures noted C0-1 and C1-[address] Pending MRI Date: Location: [facility] Region: CERVICAL Contrast: N IMAGES ARE REVIEWED WITH THE PATIENT IN OFFICE AND DEMONSTRATE THE FOLLOWING: FINDINGS: Previous fusion construct C5-7 with no evidence of infection. This details better C3-4 and C4-5 ASD which is severe. There is severe central and b/l foraminal stenosis due to the collpase at these levels, degenerative disc herniations and osteophyte formation. There is a Grade I spondylolisthesis of C3-4 noted that is partially reduced on this supine film. There are begining cord signal changes noted as well mostly at the C4-5 level due to the stenosis. Ther is anterior and posterior based stenosis at these lvels. Fused levels have good excursion without stenosis. C7-T1 again demonstrates the grade I spoondylolisthesis that is unstable and partially reduced on supine film There is b/l foraminal stenosis that is related and severe. There is degenerative collapse with facet elongation and arthrosis. No fractures noted. No lesions. Again C0-2 are stable. IMPRESSION: It was my pleasure to have seen and examined Rasheed. I reviewed the patient's clinical syndrome, physical findings, and imaging studies during the appointment today. It is my impression that the patient has a diagnosis of. 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 C3-4 GRADE I SPONDYLOLISTHESIS 5. UE WEAKNESS 6. NECK PAIN PLAN: DISCUSSION: -discussed with the patient has clinical signs and symptoms as well as valeria atment options nonoperatively and operative options. At this time the patient elects to proceed with operative procedure. We discussed anterior based surgery followed by possibly posterior based surgery related to the fact that he has multilevel spondylolisthesis stenosis as well as multilevel anterior fusion. We would start with an anterior cervical discectomy followed by a posterior based surgery. He understands this and agrees. Discussed risks and benefits at length. He was comfortable proceeding as follows: SURGICAL RECOMMENDATION -stage I: C3 through C5 anterior cervical discectomy and fusion Stage II: C2 to T2 posterior lateral cervical decompression fusion Surgical Procedure Risk Review Rasheed Wynn is a 64 year old male presenting for evaluation of sudden onset of neck pain and upper extremity pain. It was my pleasure to have seen and examined Mr. Wynn. In our visit today we have had a chance to go over subjective complaints, physical examination findings and treatments, including the natural course history without intervention and various interventional options. The imaging demonstrates adjacent segment disease C3 4 C4 5 grade 1 spondylolisthesis C3-C4 as well as distal junctional failure at C7-T1 with grade 1 spondylolisthesis severe stenosis noted C3 through C5 and C7-T1 with foraminal stenosis . On physi theresa exam, Mr. Wynn demonstrates upper extremity radiculopathy severe neck pain and pain with motion difficulty with ADLs secondary to his pain progressive neurologic changes . I explained to the patient that as his condition progresses it could cause continue progression progressive neurologic deficit progressive pain . At this time, based on the patients imaging and physical exam, I recommend surgery in the form or a: stage procedure anterior based and then posterior based . I discussed the risk and benefits of this procedure at length with Mr. Wynn. The patient agreed to consider pursuing the procedure mentioned above. Plan: 1. Stage I: C3 through C5 anterior cervical discectomy and fusion Stage II: C2 to T2 posterior lateral cervical decompression fusion 2. Follow up with PCP for surgical clearance 3. Review of surgical risks and benefits as well as an educational packet on the proposed surgical procedure. 4. preoperative labs CBC BMP chest x-ray EKG as well as clearances 5. Preoperative planning including CT of the cervical thoracic region for cervical surgery planning purposes Risks: All surgical procedures come with inherent risks, including those related to positioning, anesthesia, intraoperative findings, and postoperative complications. It is important to understand that surgery does not come with any guarantee of a successful outcome as complications and adverse events are always possible. The patient was given a handout in office today discussing the surgical p rocedure and risks associated with the intervention, both of which were discussed with the patient. These risks include but are not limited to the following: ? Experiencing same, different or even worse symptoms in back, neck, arms, or legs compared to before surgery. ? Requiring further surgery or other forms of treatment presently or at some time in the future at same or other levels of the intended spine surgery. ? On an extreme but fortunately relatively rare basis severe complication such as blindness, stroke, heart attack, temporary and/or permanent nerve injury, paralysis, coma, or may occur, sometimes without known explanation. ? Surgical complications may include but are not limited to risk of infection, fluid accumulation in the surgical dissection site, including a seroma or hematoma, that requires additional surgery, wound drainage, bleeding, new numbness or weakness, vision changes/loss, spinal fluid leakage, non-healing and/or infected incision, headaches, difficulty or inability to swallow, hoarseness, hemopneumothorax, pneumothorax, impotence, retrograde ejaculation, vaginal dryness; injury to nerves, spinal cord, blood vessels, lymphatics or other vital organs (i.e., bowel injury, injury to the great vessels); heterotopic bone formation; complications related to the hardware such as screws, rods, cages including misplaced hardware, device failure, instrumentation at the wrong spine level, hardware fracture/breakage, or hardware loosening; vertebral failure of the spinal column above or below the newly placed hardware; retained surgical instrumentations or devices and the need for further surgery. ? Medical risks of the planned spine surgery include but are not limited to generalized Infections to the whole body or local areas outside of the surgical site (sepsis), heart attack, bleeding, anaphylaxis, meningitis, seizure, epilepsy, hearing loss, burn alexander, laceration of the head or other areas of the body, bruising, hypersensitivity of the skin, bladder over distension; allergic reaction; shoulder injury related to positioning; fat, blood and air clots to other areas of the body like heart, lungs, brain; failure of internal organs such as lungs, kidneys, liver and excessive bleeding. If blood transfusions are necessary, note that transfusions may cause intolerance reactions such as anaphylaxis or other complex reactions. Despite best efforts, the results of spine surgery might not heal in terms of bone, soft tissues such as skin, fascia, ligaments, and joints. Additionally, in order to achieve best possible results, spine surgery may be carried out beyond the initially planned levels and involve decompression, fusion including insertion of hardware at levels other than the original intended area of surgical interest change some portions of the procedure in order to ensure the best possible outcomes. With spine surgery and spinal fusion, there are different off label uses of ins trumentation (devices, implants and hardware) as well as biological substances (bone morphogenic proteins, demineralized bone matrix) as well as using extra bone from allograft sources (i.e. cadaver bone) or autograft (iliac crest bone, ribs, or the spine itself). The patient has been given information about these practices and their inherent risks and benefits. Shanna Villeda Physician Assistants are medically trained surgical providers who function in the outpatient, inpatient, and operating room setting under the direct supervision of the attending surgeon.They assist in the oper ating room with direct supervision of the attending surgeons. The patient has had a chance to review all the listed information, has been given print outs detailing this information, and has had all his/her questions answered to their satisfaction. It was my pleasure to have seen and examined Mr. Wynn. In our visit today we have had a chance to go over my understanding of our patient's current condition, the natural course history without intervention and various interventional options. Questions were invited and answered, and the patient wishes to proceed as outlined above. I have seen and examined the patient for 25 minutes and we have spent more than 50% of the time in repeat and detailed counseling about the patient's condition, its natural course history with out and as much as can be predicted with surgery and re-review of various surgical treatment options. In conclusion,Mr. Wynn and his spouse/partner requested we proceed with the above suggested surgery and are willing to accept risks and limitations of the suggested surgery as nature of the disease process and our best attempts at treatment for the condition. Authorization Rationale: * Patient Demographics: * 64-year-old male Previous C5-7 ACDF in 2012 Progressive cervical symptoms over past 3 years * Failed Conservative Treatment: * Physical therapy (2 rounds, 12 sessions in last 6-9 months) Home exercise program NSAIDs, muscle relaxants, oral steroids Epidural injections Activity modification Previous cattle care worker * Clinical Findings: * Positive Spurling's sign bilaterally Motor weakness in upper extremities (4/5 in multiple muscle groups) Positive Coreas's sign on right Dermatomal deficits in C3-4 (right) and C4-5 (bilateral) Progressive neurological symptoms with arm numbness VAS pain score: 8/10 * Imaging Findings: * MRI (05/03/24): Severe central and bilateral foraminal stenosis at C3-4 and C4- 5 Cord signal changes at C4-5 Grade I spondylolisthesis at C3-4 Unstable Grade I spondylolisthesis at C7-T1 Adjacent segment disease above previous fusion Surgical Rationale: * Failed conservative management Progressive neurological deficit Documented spinal cord signal changes Mechanical instability (spondylolisthesis) Severe central and foraminal stenosis Adjacent segment disease Progressive functional decline affecting ADLs Proposed Procedures: Stage 1: * CPT: 06919 - Anterior cervical discectomy and fusion C3-C5 CPT: 04605 - Additional level for ACDF CPT: 08374 - Anterior instrumentation, 2-3 segments CPT: 56839 x2 - Cage placement Stage 2: * CPT: 56203 - Posterior cervical fusion C2-T2 CPT: 75462 - Posterior segmental instrumentation CPT: 63469 - Cervical laminectomy, partial medial facetectomy and foraminotomy CPT: 04610 - Additional levels laminectomy Primary ICD-10 Codes: * M47.12 - Other spondylosis with myelopathy, cervical region M50.12 - Cervical disc disorder with radiculopathy M43.12 - Spondylolisthesis, cervical region M47.812 - Cervical spondylosis G54.2 - Cervical root disorders, not elsewhere classified M96.1 - Post-laminectomy syndrome, not elsewhere classified Justification for Staged Approach: The staged surgical approach is necessary due to the complexity of pathology, multiple levels of involvement, and need for both anterior and posterior s tabilization to achieve adequate decompression and stabilization of the cervical spine. FOLLOW UP: POST-OP PLAN AT NEXT VISIT: RECHECK PATIENT EDUCATION: Medications Reviewed: YES In our visit today Mr. Wynn and I have had a chance to go over my understanding of the patient's current condition, the natural course history without intervention and various interventional options. Questions were invited and answered, and the patient wishes to proceed as outlined above. I will be sure to keep you updated after Mr. Wynn returns here for further follow-up. Thank you again for your referral. Please do not hesitate to contact me if you have any further questions. Signed and authenticated by: Dusty Lynne [facility] [address] [place] [phone] . This message is confidential, intended only for the named recipient(s) and may contain information that is privileged or exempt from disclosure under applicable law. If you are not the intended recipient(s), you are notified that the dissemination, distribution or copying of this information is prohibited. If you received this message in error, please notify the sender then delete this message. Past Medical History Past Medical History: Cancer, GERD/Reflux, Hypertension, Musculoskeletal Disorder, Osteoarthritis (OA), Sleep Apnea/CPAP/BIPAP Additional Past Medical History / Comment(s): does not use CPAP. hx. prostate cancer History of Any Multi-Drug Resistant Organisms: None Reported Past Surgical History: Adenoidectomy, Back Surgery, Cholecystectomy, Coronary Bypass/CABG, Orthopedic Surgery, Prostate Surgery, Tonsillectomy Additional Past Surgical History / Comment(s): Spinal fusion x3. cerical fusion, 5 total carpal tunnel surgeries. ( both sides) , triple bypass surgery 20 yrs. ago approx., prostatectomy Past Anesthesia/Blood Transfusion Reactions: No Reported Reaction Smoking Status: Current every day smoker - Past Family History Father Family Medical History: Coronary Artery Disease (CAD) Mother Family Medical History: Dementia Brother(s) Family Medical History: Coronary Artery Disease (CAD) Medications and Allergies Home Medications Medication Instructions Recorded Confirmed Type Omeprazole 40 mg PO DAILY 11/25/22 12/16/24 History lisinopriL [Zestril] 20 mg PO DAILY 11/25/22 12/16/24 History predniSONE 5 mg PO DAILY PRN 12/16/24 12/16/24 History Allergies Allergy/AdvReac Type Severity Reaction Status Date / Time No Known Allergies Allergy Verified 12/16/24 11:15 Physical Examination Osteopathic Statement: *. No significant issues noted on an osteopathic structural exam other than those noted in the History and Physical/Consult.
[~2024-12-20 07:44] MED LIST changes: -LACTATED RINGERS 1,000 ML BAG ONE; +LIDOCAINE 1% (10MG/ML) FOR IV START INTRADERMA PRN; +MIDAZOLAM 2 MG/2 ML VIAL IV PRN; +ONDANSETRON 4 MG/2 ML VIAL IVP PRN; +TRANEXAMIC 1,000 MG/100ML-NACL 1,000 MG in SALINE 1 100ML.BAG IVPB PRN; +fentaNYL (PF) 50 MCG/ML 2 ML AMP IVP PRN
[2024-12-20] MEDS: IV FLUID CONTINUATION 1,000 ML IV ONE ×3 (08:20→08:45)
[2024-12-20 08:46] LABS: Glucose,Whole Blood 93 mg/dL (70-110)
[2024-12-20] MEDS: ACETAMINOPHEN TAB 500 MG TAB PO PRN (08:51)
[2024-12-20] MEDS: GABAPENTIN 300 MG CAP PO PRN (08:51)
[2024-12-20] MEDS: ONDANSETRON 4 MG/2 ML VIAL IVP ONE (08:52)
[2024-12-20] MEDS: LACTATED RINGERS 1,000 ML IV SCH (08:53)
[2024-12-20] MEDS: DEXAMETHASONE SOD PHOSPHATE 4 MG/ML 1 ML VIAL IV ONE (08:53)
[2024-12-20 09:21] LABS: INR 0.9 (<1.2); Prothrombin Time 10.5 sec (10.0-12.5)
[2024-12-20] MEDS ORDERED: KETAMINE HCL IN 0.9 % NACL 50 MG/5 ML SYRINGE ONE (10:06)
[2024-12-20] MEDS ORDERED: MIDAZOLAM 2 MG/2 ML VIAL ONE (10:06)
[2024-12-20] MEDS ORDERED: ROCURONIUM 10 MG/ML (5 ML VIAL) IV ONE (10:06)
[2024-12-20] MEDS ORDERED: PROPOFOL 10 MG/ML 20 ML VIAL IV ONE (10:06)
[2024-12-20] MEDS ORDERED: LIDOCAINE 1% INJ 10MG/ML (20 ML MDV) ONE (10:06)
[2024-12-20] MEDS ORDERED: HYDROmorphone (PF) 1 MG/ML ONE (10:06)
[2024-12-20] MEDS ORDERED: fentaNYL (PF) 50 MCG/ML 2 ML AMP ONE (10:06)
[2024-12-20] MEDS ORDERED: TRANEXAMIC 1,000 MG/100ML-NACL PREMIX BAG ONE (10:06)
[2024-12-20] MEDS ORDERED: SUCCINYLCHOLINE CHLORIDE 200 MG/10 ML VIAL IV ONE (10:06)
[2024-12-20] MEDS: THROMBIN (BOVINE) 5,000 UNIT VIAL TOPICAL ONE (10:34)
[2024-12-20] MEDS: LACTATED RINGERS 1,000 ML IV ONE ×2 (11:11→11:33)
--- NOTE | 2024-12-20 11:48 | P.OP ---
Date of Procedure: 12/20/24 Preoperative Diagnosis: 1.ADJACENT SEGMENT DISEASE C3-4 AND C4-5 2.C3-4 AND C4-5 SPONDYLOSIS WITH STENOSIS AND RADICULOPATHY 3.C7-T1 GRADE I SPONDYLOLISTHESIS 4. C3-4 GRADE I SPONDYLOLISTHESIS 5. UE WEAKNESS 6. NECK PAIN Postoperative Diagnosis: 1.ADJACENT SEGMENT DISEASE C3-4 AND C4-5 2.C3-4 AND C4-5 SPONDYLOSIS WITH STENOSIS AND RADICULOPATHY 3.C7-T1 GRADE I SPONDYLOLISTHESIS 4. C3-4 GRADE I SPONDYLOLISTHESIS 5. UE WEAKNESS 6. NECK PAIN Procedure(s) Performed: 1. C3-4 ANTERIOR CERVICAL ARTHRODESIS 2. C4-5 ANTERIOR CERVICAL ARTHRODESIS 3. ANTERIOR INSTRUMENTATION C3-4 AND C4-5 4. INSERTION OF BIOMECHANICAL DEVICE C3-4 AND C4-5 CAGES x2 USE OF IO MICROSCOPE USE OF IONM ALL BASELINE AT CLOSURE Implants: GLOBUS COALITION 12 DEG, XL, 8MM x2 [employer] Anesthesia: KIKAA Surgeon: Blayne Campos Human Resources Manager #1: Antony Adhikari (was present and assisted with all aspects of the case from position to dressing placement) Estimated Blood Loss (ml): 25 IV fluids (ml): 1,100 Urine output (ml): 0 Pathology: none sent Condition: stable Disposition: PACU Indications for Procedure: Rasheed Wynn, a 64-year-old male, presents with progressive cervical pain and upper extremity symptoms over the past three years. His medical history is significant for a previous C5-C7 cervical fusion in 2011, with current VAS pain score of 7/10. Imaging reveals severe central and bilateral foraminal stenosis at C3-4 and C4-5, Grade I spondylolisthesis at C3-4 and C7-T1, with beginning cord signal changes noted on MRI. Physical examination demonstrates positive Spurling's sign bilaterally, upper extremity weakness (4/5 in multiple muscle groups), and dermatomal deficits in C3-4 (right) and C4-5 (bilateral). Conservative management, including PT, medications, and injections, has failed to provide sustained relief. The patient is scheduled for a two-stage surgical procedure: Stage I involving C3 through C5 anterior cervical discectomy and fusion, followed by Stage II consisting of C2 to T2 posterior lateral cervical decompression fusion. Preoperative requirements were met and include PCP clearance, standard labs (CBC, BMP), chest X-ray, EKG, and CT scan of the cervical/thoracic region for surgical planning. Description of Procedure: C3-5 ACDF The patient was seen and examined in the preoperative area. All preoperative protocols were followed. Informed consent was obtained, risks and benefits of the procedure were discussed at length. Risks including bleeding infection damage to the surrounding tissue and risk of reoperation were discussed with the patient. Risk of anesthesia up to and including was discussed with the patient. These are outlined in the risk review. They were willing to accept these risks and all the risks of surgery. The patient was given a weight-based dose of antibiotics in the form of 2 g Ancef. The patient was seen and evaluated by the anesthesia team who deemed them fit for surgery. The site was marked, the patient was willing to proceed with the procedure. The patient was transferred to the operative suite by the Department of anesthesia. They were then drifted off to sleep by the department anesthesia and GETA was performed. The patient tolerated this well. Lee catheter was placed by nursing staff, a-traumatically. Once confirmation of lines and ventil ation the patient was transferred to a Supine Matt table very carefully. All bony prominences including wrists, elbows, axilla, chest, hips, and thighs, and feet were padded very well. Special attention was paid to the genitalia, and these were padded accordingly. SCDs were placed on bilateral lower extremities and were connected. Arms were well padded and placed at their side thumbs up. Once in position, again we confirmed good ventilation capabilities and that lines were running appropriately. The patients Cervical spine was then exposed. 1010s were placed outlining the incision site. Standard alcohol was used to clean the incision site and allowed to dry. C-arm was used to bio-neptali the patient and confirm level for incision which was marked with a skin marker. Operative briefing was performed with all teams and everyone in agreement to proceed. The patient was then prepped and draped in a normal sterile fashion. Timeout was then performed, and all parties agreed with the procedure to be performed. Transverse skin incision was then made on the right side of the patient's neck 3 cm and dissection taken down to the platysma which was split transversely. Sub platysma flap was made, and interval identified between SCM and medial structures. Omohyoid was visualized and protected. Blunt dissection taken down to the anterior cervical fascia which was identified. Blunt probe was then placed and lateral image taken which confirmed levels for operation. These levels were then marked with a bovi. Subperiosteal dissection of the longissimus muscles were then done over these levels identifying uncovertebral joints bilaterally. Retractor was then placed deep to these muscles and held in place with a bed arm. [place] pins were placed into C4 and C5 and gentle distraction taken out over the levels. Erwin rongeur used to remove disc material. Operating microscope brought in for visualization. Complete discectomy performed at this level with curette, rongure and pituitary. High speed coleen used to remove osteophytes anteriorly and posteriorly until PLL was identified. 6-0 up curette then used to identify the canal and resect the PLL. 2-0 and 3-0 Kerrison used then to remove PLL and disc herniation and performed b/l foraminotomies. Once good decompression was accomplished, meticulous hemostasis was performed. Sizers were then placed under lateral fluoroscopy until the desired height and lordosis. Cage was then selected, packed with autograft and allograft and placed under lateral imaging. Once in good position it was tested and stable. Motors run before and after cage placement were stable. The wound was irrigated, and autograft placed lateral to the cage anteriorly for fusion. [place]blo pin was then removed from C5 and bone wax placed in their void. [place] pin was then placed into C3. Gentle distraction was then taken out over the C3-4 levels. Erwin rongeur used to remove disc material. Operating microscope brought in for visualization. Complete discectomy performed at this level with curette, rongure and pituitary. High speed coleen used to remove osteophytes anteriorly and posteriorly until PLL was identified. 6-0 up curette then used to identify the canal and resect the PLL. 2-0 and 3-0 Kerrison used then to remove PLL and disc herniation and performed b/l foraminotomies. Once good decompression was accomplished, meticulous hemostasis was performed. Sizers were then placed under lateral fluoroscopy until the desired height and lordosis. Cage was then selected, packed with autograft and allograft and placed under lateral imaging. Once in good position it was tested and stable. Motors run before and after cage placement were stable. The wound was irrigated, and autograft placed lateral to the cage anteriorly for fusion. Anterior instrumentation was then done at these levels. 14mm anchors were placed through the anterior plate construct at each level after awl was passed through under lateral fluoroscopy. All had good bite. Locking mechanisms set. Final AP and lateral images taken confirmed good placement of hardware and good reduction and hindu of height. The wound was then irrigated copiously with NSS. Surgicel placed deep in the wound. Layered closure then performed with 3-0 Vicryl in the platysma and subQ tissue. 4-0 Strata fix in the subcuticular tissue. The wound was then cleaned, and dried and skin glue placed. Once glue dried on, Optifoam was placed. The patient was then transferred back to their hospital bed a-traumatically. The drain continued to hold suction. They were placed in a soft collar. They were then awakened by the department of anesthesia having tolerated the procedure well without complications.
[2024-12-20 12:10] VITALS: TEMP 97.2
[2024-12-20] MEDS ORDERED: HYDROcodone/APAP 7.5-325MG 1 EACH TAB PO PRN (12:11)
[2024-12-20] MEDS ORDERED: CYCLOBENZAPRINE 10 MG TAB PO PRN (12:12)
[2024-12-20] MEDS ORDERED: HYDROmorphone 1 MG/ML 1 ML SYRINGE IVP PRN (12:12)
[2024-12-20] MEDS ORDERED: HYDROmorphone 0.5 MG/0.5 ML SYRINGE IVP PRN (12:12)
--- NOTE | 2024-12-20 12:19 | FL ---
EXAMINATION TYPE: FL guidance operating room, XR cervical spine limited DATE OF EXAM: 12/20/2024 CLINICAL HISTORY: Neck pain. TECHNIQUE: Fluoroscopy. Limited view cervical spine. COMPARISON: CT cervical spine August 17, 2024. FINDINGS: Fluoroscopic guidance was provided during anterior fusion procedure performed by Dr. Tari machado. A total of 18 seconds of fluoroscopic time was utilized during the procedure and 5 spot image s was acquired. Total dose area product (DAP) in uGy*m?, mGy*cm? (or similar: 0.5250. Images acquired show anterior fusion plate C5-C7 levels with placement of new interbody anterior fusi on devices at C3-C4 and C4-C5 levels. IMPRESSION: As Above. [facility], , 12/20/2024 12:17 PM
[2024-12-20] MEDS: HYDROmorphone 0.5 MG/0.5 ML SYRINGE IVP PRN (12:25)
[2024-12-20 14:02] VITALS: RESP 18
[2024-12-20 14:20] VITALS: BP 156/86; PULSE 72
== END 2024-12-20 15:25 | disposition home health service (06) ==
LOC: OR 07:44
PROVIDERS: ATTEND Orthopaedic Surgery
DX: M47.22 Other spondylosis with radiculopathy, cervical region (principal); M50.11 Cervical disc disorder with radiculopathy, high cervical region; M48.02 Spinal stenosis, cervical region; M43.12 Spondylolisthesis, cervical region; M43.13 Spondylolisthesis, cervicothoracic region; I10 Essential (primary) hypertension; I25.10 Atherosclerotic heart disease of native coronary artery without angina pectoris; Z95.1 Presence of aortocoronary bypass graft; E78.5 Hyperlipidemia, unspecified; G47.33 Obstructive sleep apnea (adult) (pediatric); Z91.199 Patient's noncompliance with other medical treatment and regimen due to unspecified reason; K21.9 Gastro-esophageal reflux disease without esophagitis; Z79.82 Long term (current) use of aspirin; Z79.52 Long term (current) use of systemic steroids; Z79.899 Other long term (current) drug therapy; Z87.891 Personal history of nicotine dependence; Z85.46 Personal history of malignant neoplasm of prostate; Z98.1 Arthrodesis status
CPT/HCPCS: 85610; 72040; 22551; 22552; 22853 ×2; 22845; 20930; 20936; C1713; J2250; J0330; J1100; J0690; J2405; J2003; J3010; J1171 ×2; J2704

== ENCOUNTER 2024-12-21 20:50 | Emergency (ER) | payer MEDICARE ==
[2024-12-21 21:32] VITALS: BP 170/114; PULSE 77; RESP 17; TEMP 98.2
--- NOTE | 2024-12-21 22:26 | ED ---
SOB HPI - General Source: patient, RN notes reviewed Mode of arrival: ambulatory Limitations: no limitations <Renu Gonzalez - Last Filed: 12/21/24 22:22> <Leonard Callejas - Last Filed: 12/29/24 14:19> - General Chief Complaint: Shortness of Breath Stated Complaint: ROSARIO, difficulty swallowing, post op Time Seen by Provider: 12/21/24 22:22 - History of Present Illness Initial Comments: Quick [id number] male presenting for postop complication. Reports he had cervical spine surgery yesterday. He usually uses a CPAP at night to sleep and reports he usually sleeps on his stomach. States he is unable to use his CPAP because he has to sleep sitting up due to the c-collar therefore has been unable to get much sleep. Endorses mild shortness of breath. Denies difficulty swallowing or fevers. (Renu Gonzalez) - Related Data Home Medications Medication Instructions Recorded Confirmed Omeprazole 40 mg PO DAILY 11/25/22 12/29/24 lisinopriL [Zestril] 20 mg PO DAILY 11/25/22 12/29/24 Allergies Allergy/AdvReac Type Severity Reaction Status Date / Time No Known Allergies Allergy Verified 12/29/24 07:36 Review of Systems ROS Other: All systems not noted in ROS Statement are negative. <Renu Gonzalez - Last Filed: 12/21/24 22:22> ROS Other: All systems not noted in ROS Statement are negative. <Leonard Callejas - Last Filed: 12/29/24 14:19> ROS Statement: Those systems with pertinent positive or pertinent negative responses have been documented in the HPI. Past Medical History Past Medical History: Cancer, GERD/Reflux, Hypertension, Musculoskeletal Disorder, Osteoarthritis (OA), Sleep Apnea/CPAP/BIPAP Additional Past Medical History / Comment(s): does not use CPAP. hx. prostate cancer History of Any Multi-Drug Resistant Organisms: None Reported Past Surgical History: Adenoidectomy, Back Surgery, Cholecystectomy, Coronary Bypass/CABG, Orthopedic Surgery, Prostate Surgery, Tonsillectomy Additional Past Surgical History / Comment(s): Spinal fusion x3. cerical fusion, 5 total carpal tunnel surgeries. ( both sides) , triple bypass surgery 20 yrs. ago approx., prostatectomy Past Anesthesia/Blood Transfusion Reactions: No Reported Reaction Past Psychological History: Depression Smoking Status: Current every day smoker Past Alcohol Use History: None Reported Past Drug Use History: None Reported - Past Family History Father Family Medical History: Coronary Artery Disease (CAD) Mother Family Medical History: Dementia Brother(s) Family Medical History: Coronary Artery Disease (CAD) <Renu Gonzalez - Last Filed: 12/21/24 22:22> General Exam Limitations: no limitations <Renu Gonzalez - Last Filed: 12/21/24 22:22> - General Exam Comments Initial Comments: Visual Physical Exam Vital signs reviewed General: Well-appearing, nontoxic, no acute distress. Head: Normocephalic, atraumatic Eyes: PERRLA, EOMI ENT: Airway patent Chest: Nonlabored breathing Skin: No visual rash, normal skin tone Neuro: Alert and oriented 3 Musculoskeletal: No gross abnormalities (Renu Gonzalez) Course Vital Signs 12/21/24 21:29 Temperature 98.2 F Pulse Rate 77 Respiratory 17 Rate Blood Pressure 170/114 O2 Sat by Pulse 91 L Oximetry Medical Decision Making <Renu Gonzalez - Last Filed: 12/21/24 22:22> - Lab Data Result diagrams: 12/21/24 23:05 12/21/24 23:05 <Leonard Callejas - Last Filed: 12/29/24 14:19> - Medical Decision Making I completed the quick note portion of this chart signed Renu Gonzalez PA-C (Renu Gonzalez) - Lab Data Lab Results 12/21/24 12/21/24 Range/Units 23:05 23:05 WBC 7.2 (3.8-10.6) k/uL RBC 4.40 (4.30-5.90) m/uL Hgb 12.9 L (13.0-17.5) gm/dL Hct 42.0 (39.0-53.0) % MCV 95.6 (80.0-100.0) fL MCH 29.4 (25.0-35.0) pg MCHC 30.8 L (31.0-37.0) g/dL RDW 14.5 (11.5-15.5) % Plt Count 239 (150-450) k/uL MPV 7.4 Neutrophils % 70 % Lymphocytes % 19 % Monocytes % 8 % Eosinophils % 2 % Basophils % 0 % Neutrophils # 5.0 (1.3-7.7) k/uL Lymphocytes # 1.4 (1.0-4.8) k/uL Monocytes # 0.6 (0-1.0) k/uL Eosinophils # 0.1 (0-0.7) k/uL Basophils # 0.0 (0-0.2) k/uL Sodium 137 (137-145) mmol/L Potassium 4.6 (3.5-5.1) mmol/L Chloride 96 L (98-107) mmol/L Carbon Dioxide 31 H (22-30) mmol/L Anion Gap 10 mmol/L BUN 15 (9-20) mg/dL Creatinine 0.66 (0.66-1.25) mg/dL Est GFR (CKD-EPI)AfAm >90 (>60 ml/min/1.73 sqM) Est GFR (CKD-EPI)NonAf >90 (>60 ml/min/1.73 sqM) Glucose 101 H (74-99) mg/dL Calcium 9.7 (8.4-10.2) mg/dL Total Bilirubin 0.7 (0.2-1.3) mg/dL AST 72 H (17-59) U/L ALT 150 H (4-49) U/L Alkaline Phosphatase 67 (38-126) U/L Total Protein 7.9 (6.3-8.2) g/dL Albumin 4.9 (3.5-5.0) g/dL Disposition <Renu Gonzalez - Last Filed: 12/21/24 22:22> <Leonard Callejas - Last Filed: 12/29/24 14:19> Clinical Impression: Post-operative complication Disposition: LEFT AGAINST MEDICAL ADVICE Referrals: Jazmine eNss MD [Primary Care Provider] - 1-2 days
--- NOTE | 2024-12-21 22:57 | XR ---
EXAMINATION TYPE: XR chest 2V DATE OF EXAM: 12/21/2024 10:51 PM COMPARISON: None TECHNIQUE: XR chest 2V Frontal and lateral views of the chest. CLINICAL INDICATION:Male, 64 years old with history of shortness of breath; FINDINGS: Lungs/Pleura: There is no evidence of pleural effusion, focal consolidation, or pneumothorax. Pulmonary vascularity: Unremarkable. Heart/mediastinum: Cardiomediastinal silhouette is unremarkable. Atherosclerotic calcifications are seen in the aorta. Musculoskeletal: No acute osseous pathology. Midline sternotomy wires are noted. Cervical fusion hard michael. IMPRESSION: No acute cardiopulmonary disease/process. [facility], , 12/21/2024 10:54 PM
[2024-12-21 23:18] LABS: Basophils % (A) 0 %; Eosinophils # (A) 0.1 k/uL (0-0.7); Eosinophils % (A) 2 %; HGB 12.9 gm/dL (13.0-17.5); Lymphocytes # (A) 1.4 k/uL (1.0-4.8); Lymphocytes % (A) 19 %; MCH 29.4 pg (25.0-35.0); MCHC 30.8 g/dL (31.0-37.0); MCV 95.6 fL (80.0-100.0); Mean Platelet Volume 7.4; Monocytes # (A) 0.6 k/uL (0-1.0); Monocytes % (A) 8 %; Neutrophils % (A) 70 %; Platelet Count 239 k/uL (150-450); RDW 14.5 % (11.5-15.5); WBC 7.2 k/uL (3.8-10.6)
[2024-12-21 23:28] LABS: ALT 150 U/L (4-49); African American GFR (CKD) >90 (>60 ml/min/1.73 sqM); Albumin 4.9 g/dL (3.5-5.0); Anion Gap 10 mmol/L; Blood Urea Nitrogen 15 mg/dL (9-20); Calcium 9.7 mg/dL (8.4-10.2); Carbon Dioxide 31 mmol/L (22-30); Chloride 96 mmol/L (98-107); Glucose 101 mg/dL (74-99); Non-African American GFR(CKD) >90 (>60 ml/min/1.73 sqM); Sodium 137 mmol/L (137-145); Total Bilirubin 0.7 mg/dL (0.2-1.3); Total Protein 7.9 g/dL (6.3-8.2)
[2024-12-21 23:40] LABS: AST 72 U/L (17-59); Alkaline Phosphatase 67 U/L (38-126); Potassium 4.6 mmol/L (3.5-5.1)
== END 2024-12-22 01:07 | disposition left against medical advice (07) ==
LOC: EC 20:50
DX: T88.9XXA Complication of surgical and medical care, unspecified, initial encounter (principal); F17.200 Nicotine dependence, unspecified, uncomplicated; Z53.29 Procedure and treatment not carried out because of patient's decision for other reasons
CPT/HCPCS: 36415; 71046; 80053; 85025; 99284

== ENCOUNTER 2024-12-28 19:27 | Observation (INO) | payer MEDICARE ==
[2024-12-28 20:05] LABS: Basophils % (A) 1 %; Eosinophils # (A) 0.3 k/uL (0-0.7); Eosinophils % (A) 7 %; HCT 38.3 % (39.0-53.0); HGB 12.5 gm/dL (13.0-17.5); Lymphocytes # (A) 1.3 k/uL (1.0-4.8); Lymphocytes % (A) 28 %; MCH 29.8 pg (25.0-35.0); MCHC 32.5 g/dL (31.0-37.0); MCV 91.9 fL (80.0-100.0); Mean Platelet Volume 7.3; Monocytes # (A) 0.4 k/uL (0-1.0); Monocytes % (A) 9 %; Neutrophils # (A) 2.5 k/uL (1.3-7.7); Neutrophils % (A) 53 %; Platelet Count 296 k/uL (150-450); RBC 4.17 m/uL (4.30-5.90); RDW 13.9 % (11.5-15.5); WBC 4.8 k/uL (3.8-10.6)
[2024-12-28 20:44] LABS: ALT 26 U/L (4-49); AST 21 U/L (17-59); African American GFR (CKD) >90 (>60 ml/min/1.73 sqM); Albumin 4.1 g/dL (3.5-5.0); Alkaline Phosphatase 77 U/L (38-126); Anion Gap 7 mmol/L; Blood Urea Nitrogen 22 mg/dL (9-20); Calcium 9.5 mg/dL (8.4-10.2); Carbon Dioxide 29 mmol/L (22-30); Chloride 97 mmol/L (98-107); Glucose 102 mg/dL (74-99); Non-African American GFR(CKD) >90 (>60 ml/min/1.73 sqM); Potassium 4.5 mmol/L (3.5-5.1); Sodium 133 mmol/L (137-145); Total Bilirubin 0.3 mg/dL (0.2-1.3); Total Protein 6.8 g/dL (6.3-8.2)
--- NOTE | 2024-12-28 22:18 | CT ---
EXAMINATION TYPE: CT soft tissue neck w con, CT cervical spine w con DATE OF EXAM: 12/28/2024 9:47 PM COMPARISON: Previous CT cervical spine study 08/17/2024.. CLINICAL INDICATION: Male, 64 years old with history of recent spinal fusion, difficulty swallowing; PHH, Recent spinal fusion, difficulty swallowing. TECHNIQUE: Standard enhanced CT of the neck. Noncontrast study of the cervical spine. Axial sections with coronal and sagittal reformats were obtained. Contrast used:100ml mL of Isovue 300 with IV Contrast, (None if empty) FINDINGS: Brain: Visualized portions are grossly unremarkable. Orbits: Unremarkable Sinuses: Grossly unremarkable. Spaces of the neck/soft tissues: Significant retropharyngeal and laryngeal edema with severe narrowin g of the airway at the level of C3-C4 in the supraglottic/glottic/subglottic regions. Additionally, t here is an air-fluid collection in the right prevertebral soft tissues measuring 3.8 x 1.6 x 3.5 cm ( Transverse x AP x CC). There is leftward mass effect on the pharynx and subglottic airway. Musculoskeletal: Redemonstration anterior spinal fusion hardware spanning C5-C7, stable from prior st udy. Interval placement of anterior fusion hardware at C3-C4 with new C3-C4 and C4-C5 intervertebral disc spacer devices. No definite periprosthetic lucency to suggest acute hardware failure. Severely l imited evaluation of the spinal canal due to extensive streak and metallic artifact. Lymph nodes: Multiple nonenlarged lymph nodes are seen along both anterior chains of the neck. Vascular structures: No definite flow-limiting stenosis of the cervical carotid arteries. Thoracic Inlet/airway: Airway is patent. Partially visualized azygous lobe and fissure. Thyroid: Thyroid gland is unremarkable. Soft tissue edema and air fluid collection as above. Other: none. IMPRESSION 1. Interval anterior fusion at C3-C4 with associated intervertebral disc spacer devices at C3-C4 and C4-C5. No convincing CT evidence of acute hardware failure. 2. Air-fluid collection in the right prevertebral soft tissues measuring 3.8 x 1.6 x 3.5 cm spanning the levels of C3-C6 with associated leftward mass effect on the larynx and airway. 3. Significant retropharyngeal and laryngeal edema causing severe mass effect on the pharynx and german rowing of the subglottic airway. [facility], , 12/28/2024 10:16 PM
[2024-12-28] MEDS: DEXAMETHASONE SOD PHOSPHATE 10 MG/ML 1 ML VIAL IV STA (22:39)
[2024-12-28] MEDS ORDERED: MORPHINE SULFATE 4 MG/ML SYRINGE IV PRN (22:50)
[2024-12-28] MEDS ORDERED: KETOROLAC 15 MG/ML 1 ML VIAL IVP PRN (22:50)
[2024-12-28] MEDS ORDERED: NALOXONE 0.4 MG/ML 1 ML VIAL IV PRN (22:50)
--- NOTE | 2024-12-28 22:56 | ED ---
General Adult HPI - General Chief complaint: Shortness of Breath Stated complaint: sob Time Seen by Provider: 12/28/24 19:36 Source: patient Mode of arrival: ambulatory Limitations: no limitations - History of Present Illness Initial comments: 64-year-old male presenting with chief complaint of difficulty breathing and swallowing. Patient had an anterior approach cervical discectomy and fusion with Dr. Campos on 12/20. He reports that that same day he started having some swelling on the right side. He reports that the swelling has been persiste nt. He can only swallow small amounts of food or water at a time and sometimes has some regurgitation. He also reports some difficulty breathing. Patient is a 2 pack/day smoker. No chest pain. No fever. No vomiting. Patient has been wearing his hard c-collar as instructed. His follow-up appointment is next week. No hemoptysis. - Related Data Home Medications Medication Instructions Recorded Confirmed Omeprazole 40 mg PO DAILY 11/25/22 12/20/24 lisinopriL [Zestril] 20 mg PO DAILY 11/25/22 12/20/24 predniSONE 5 mg PO DAILY PRN 12/16/24 12/20/24 Previous Rx's Medication Instructions Recorded Cyclobenzaprine [Flexeril] 5 mg PO BID PRN #30 tablet 12/20/24 HYDROcodone/APAP 7.5-325MG [[place] 1 each PO Q6HR PRN #28 tab 12/20/24 7.5] Sennosides/Docusate Sodium 2 each PO DAILY PRN #30 tablet 12/20/24 [Senna-S 8.6-50 mg Tablet] cefaDROXiL [Duricef] 500 mg PO Q12HR 5 Days #10 cap 12/20/24 Allergies Allergy/AdvReac Type Severity Reaction Status Date / Time No Known Allergies Allergy Verified 12/28/24 19:33 Review of Systems ROS Statement: Those systems with pertinent positive or pertinent negative responses have been documented in the HPI. ROS Other: All systems not noted in ROS Statement are negative. Past Medical History Past Medical History: Cancer, GERD/Reflux, Hypertension, Musculoskeletal Disorder, Osteoarthritis (OA), Sleep Apnea/CPAP/BIPAP Additional Past Medical History / Comment(s): does not use CPAP. hx. prostate cancer History of Any Multi-Drug Resistant Organisms: None Reported Past Surgical History: Adenoidectomy, Back Surgery, Cholecystectomy, Coronary B ypass/CABG, Orthopedic Surgery, Prostate Surgery, Tonsillectomy Additional Past Surgical History / Comment(s): Spinal fusion x3. cerical fusion, 5 total carpal tunnel surgeries. ( both sides) , triple bypass surgery 20 yrs. ago approx., prostatectomy, spinal fusion 2024 Past Anesthesia/Blood Transfusion Reactions: No Reported Reaction Past Psychological History: Depression Smoking Status: Current every day smoker Past Alcohol Use History: None Reported Past Drug Use History: None Reported - Past Family History Father Family Medical History: Coronary Artery Disease (CAD) Mother Family Medical History: Dementia Brother(s) Family Medical History: Coronary Artery Disease (CAD) General Exam Limitations: no limitations General appearance: alert, in no apparent distress Head exam: Present: atraumatic, normocephalic, normal inspection Eye exam: Present: normal appearance, EOMI Neck exam: Present: other (Patient has swelling on the right side of the neck over his incision, there is some tracheal deviation) Respiratory exam: Present: normal lung sounds bilaterally. Absent: respiratory distress, wheezes, rales, rhonchi, stridor Cardiovascular Exam: Present: regular rate, normal rhythm, normal heart sounds. Absent: systolic murmur, diastolic murmur, rubs, gallop, clicks Neurological exam: Present: alert, oriented X3 Psychiatric exam: Present: normal affect, normal mood Skin exam: Present: normal color Course Vital Signs 12/28/24 12/28/24 12/28/24 19:28 21:00 23:10 Temperature 97.7 F Pulse Rate 83 76 72 Respiratory 18 16 16 Rate Blood Pressure 179/107 156/91 173/93 O2 Sat by Pulse 97 99 96 Oximetry Medical Decision Making - Medical Decision Making Was pt. sent in by a medical professional or institution (, PA, HUMAN SERVICES SUPERVISOR, urgent care, hospital, or jail...) When possible be specific @ -No Did you speak to anyone other than the patient for history (EMS, parent, family, police, friend...)? What history was obtained from this source @ -No Did you review nursing and triage notes (agree or disagree)? Why? @ -I reviewed and agree with nursing and triage notes Were old charts reviewed (outside hosp., previous admission, EMS record, old EKG, old radiological studies, urgent care reports/EKG's, jail records)? Report findings @ -Reviewed patient's procedure Differential Diagnosis (chest pain, altered mental status, abdominal pain women, abdominal pain men, vaginal bleeding, weakness, fever, dyspnea, syncope, headache, dizziness, GI bleed, back pain, seizure, CVA, palpatations, mental health, musculoskeletal)? @ -Differential includes abscess, hematoma, seroma, mass, not an all-inclusive list EKG interpreted by me (3pts min.). @ -As above X-rays interpreted by me (1pt min.). @ -None done CT interpreted by me (1pt min.). @ -CT of the cervical spine and soft tissue neck shows interval anterior fusion at the C3 C4 with associated intervertebral disc spacer devices at C3-C4 and C4-C5. No convincing CT evidence of acute hardware failure. Air-fluid collection in the right prevertebral soft tissues measuring 3.8 x 1.6 x 3.5 cm spanning the levels of C3- through C6 with associated leftward mass effect on the larynx and airway. Significant retropharyngeal and laryngeal edema causing severe mass effect on the pharynx and narrowing of the subglottic airway U/S interpreted by me (1pt. min.). @ -None done What testing was considered but not performed or refused? (CT, X-rays, U/S, labs)? Why? @ -None What meds were considered but not given or refused? Why? @ -None Did you discuss the management of the patient with other professionals (professionals i.e. , PA, HUMAN SERVICES SUPERVISOR, lab, RT, psych nurse, psychosocial rehabilitation counselor, legend maker, teacher, annual giving officer, renal case manager)? Give summary @ -Spoke with the patient's surgeon Dr. West son, states that the patient can be admitted, start Decadron and place him on continuous pulse ox placed him on frequent vitals throughout the night and he will be evaluated in the morning Was smoking cessation discussed for >3mins.? @ -No Was critical care preformed (if so, how long)? @ -No Were there social determinants of health that impacted care today? How? (Ho melessness, low income, unemployed, alcoholism, drug addiction, transportation, low edu. Level, literacy, decrease access to med. care, fpc, rehab)? @ -No Was there de-escalation of care discussed even if they declined (Discuss DNR or withdrawal of care, Hospice)? DNR status @ -No What co-morbidities impacted this encounter? (DM, HTN, Smoking, COPD, CAD, Cancer, CVA, ARF, Chemo, Hep., AIDS, mental health diagnosis, sleep apnea, morbid obesity)? @ -None Was patient admitted / discharged? Hospital course, mention meds given and route, prescriptions, significant lab abnormalities, going to OR and other pertinent info. @ -64-year-old male presenting with chief complaint of difficulty breathing and swallowing. He had surgery on his neck with Dr. Goodman etienne on 12/20, symptoms have been ongoing since. History and physical examination are conducted. No leukocytosis. Hemoglobin 12.5. CT is positive for prevertebral fluid collection, as well as retropharyngeal and laryngeal edema. I spoke with the patient's surgeon Dr. Campos, he advised starting Decadron, putting the patient on continuous pulse ox, having vitals checked semi-frequently throughout the evening, and admitting the patient for evaluation in the morning. Educated the patient on the treatment plan. Patient is agreeable. I discussed this case with my attending Dr. Zavala. Undiagnosed new problem with uncertain prognosis? @ -No Drug Therapy requiring intensive monitoring for toxicity (Heparin, Nitro, Insuli n, Cardizem)? @ -No Were any procedures done? @ -No Diagnosis/symptom? @ -Prevertebral fluid collection, postop complication Acute, or Chronic, or Acute on Chronic? @ -Acute Uncomplicated (without systemic symptoms) or Complicated (systemic symptoms)? @ -Complicated Side effects of treatment? @ -No Exacerbation, Progression, or Severe Exacerbation? @ -No Poses a threat to life or bodily function? How? (Chest pain, USA, VT, pneumonia, PE, COPD, DKA, ARF, appy, cholecystitis, CVA, Diverticulitis, Homicidal, Suicidal, threat to staff... and all critical care pts) @ -Yes - Lab Data Result diagrams: 12/28/24 19:56 12/28/24 19:56 Lab Results 12/28/24 12/28/24 12/28/24 Range/Units 19:56 19:56 19:56 WBC 4.8 (3.8-10.6) k/uL RBC 4.17 L (4.30-5.90) m/uL Hgb 12.5 L (13.0-17.5) gm/dL Hct 38.3 L (39.0-53.0) % MCV 91.9 (80.0-100.0) fL MCH 29.8 (25.0-35.0) pg MCHC 32.5 (31.0-37.0) g/dL RDW 13.9 (11.5-15.5) % Plt Count 296 (150-450) k/uL MPV 7.3 Neutrophils % 53 % Lymphocytes % 28 % Monocytes % 9 % Eosinophils % 7 % Basophils % 1 % Neutrophils # 2.5 (1.3-7.7) k/uL Lymphocytes # 1.3 (1.0-4.8) k/uL Monocytes # 0.4 (0-1.0) k/uL Eosinophils # 0.3 (0-0.7) k/uL Basophils # 0.0 (0-0.2) k/uL Sodium 133 L (137-145) mmol/L Potassium 4.5 (3.5-5.1) mmol/L Chloride 97 L (98-107) mmol/L Carbon Dioxide 29 (22-30) mmol/L Anion Gap 7 mmol/L BUN 22 H (9-20) mg/dL Creatinine 0.82 (0.66-1.25) mg/dL Est GFR (CKD-EPI)AfAm >90 (>60 ml/min/1.73 sqM) Est GFR (CKD-EPI)NonAf >90 (>60 ml/min/1.73 sqM) Glucose 102 H (74-99) mg/dL Plasma Lactic Acid Darryl 0.9 (0.7-2.0) mmol/L Calcium 9.5 (8.4-10.2) mg/dL Total Bilirubin 0.3 (0.2-1.3) mg/dL AST 21 (17-59) U/L ALT 26 (4-49) U/L Alkaline Phosphatase 77 (38-126) U/L Total Protein 6.8 (6.3-8.2) g/dL Albumin 4.1 (3.5-5.0) g/dL Disposition Clinical Impression: Post-operative complication Disposition: ADMITTED IP TO THIS [facility] Condition: Serious Time of Disposition: 22:55
[2024-12-29] MEDS: SODIUM CHLORIDE 0.9% 1,000 ML IV SCH (00:19)
--- NOTE | 2024-12-29 07:31 | P.PN ---
Progress Note - Text Progress Note Date: 12/28/24 Spoke with Ed provider about patient. Her reports in surgery and since the patient left he is having difficulty swallowing and then breathing as well. He States a slight increase in this over the last 24 hours however stated that it did start after surgery and seems to be about the same. It is disrupting his sleep however and he's having difficulty with this and so he came to the emergency department. CT was done and reviewed. I do agree that there is a large amount of tracheal edema. However, it's difficult to tell if there's tracheal deviation. There's a fluid collection that's 3 cm by 3 cm on the right hand side in the surgical bed. There's no complicating process seeing within the hardware or elsewhere. Alignment is stable. On coronal views. There's no evident tracheal deviation. However, there is what appears to be pre-severe trachea swelling and edema. Recommend starting decadron as well as anti-inflammatories. He needs to be on continuous pulse ox monitoring overnight as well as telemetry.
--- NOTE | 2024-12-29 07:58 | P.HPOR ---
History of Present Illness H&P Date: 12/29/24 Chief Complaint: Neck pain 64 yo male who underwent revision ACDF C3-5 on 12/20/24 represents due to increased pain and difficulty with swallowing as well as some breathing issues that are affecting his sleep. He states he is supposed to use a CPAP but does not and at night he was having difficulty breathing waking up an seemingly "choking". He states he wont wear his CPAP but he tries to sleep on his side and stomach. He sates there was swelling since surgery and it has not gotten worse but actually seems to have gotten better since. He was going to call office but then when he was unable to breathe well at home he came in. He states no real issues swallowing but there is pain. He states no issues with his UE or LE. No fine motor disruption or weakness. Denies any bowel or bladder issues. Wily any f/c/sob/cp. Review of Systems 16 points review of systems completed and as stated in HPI, all other systems reviewed are negative. Past Medical History Past Medical History: Cancer, GERD/Reflux, Hypertension, Musculoskeletal Disorder, Osteoarthritis (OA), Sleep Apnea/CPAP/BIPAP Additional Past Medical History / Comment(s): does not use CPAP. hx. prostate cancer History of Any Multi-Drug Resistant Organisms: None Reported Past Surgical History: Adenoidectomy, Back Surgery, Cholecystectomy, Coronary Bypass/CABG, Orthopedic Surgery, Prostate Surgery, Tonsillectomy Additional Past Surgical History / Comment(s): Spinal fusion x3. cerical fusion, 5 total carpal tunnel surgeries. ( both sides) , triple bypass surgery 20 yrs. ago approx., prostatectomy, spinal fusion 2024 Past Anesthesia/Blood Transfusion Reactions: No Reported Reaction Past Psychological History: Depression Smoking Status: Current every day smoker Past Alcohol Use History: None Reported Past Drug Use History: None Reported - Past Family History Father Family Medical History: Coronary Artery Disease (CAD) Mother Family Medical History: Dementia Brother(s) Family Medical History: Coronary Artery Disease (CAD) Medications and Allergies Home Medications Medication Instructions Recorded Confirmed Type Omeprazole 40 mg PO DAILY 11/25/22 12/29/24 History lisinopriL [Zestril] 20 mg PO DAILY 11/25/22 12/29/24 History Allergies Allergy/AdvReac Type Severity Reaction Status Date / Time No Known Allergies Allergy Verified 12/29/24 07:36 Physical Examination Osteopathic Statement: *. No significant issues noted on an osteopathic structural exam other than those noted in the History and Physical/Consult. PHYSICAL EXAMINATION: Vitals: Stable at this time with O2 sats 99 on room air General: Awake, alert, appropriate for age, in no acute distress. HEENT: No unusual neck masses around region of lateral neck triangle, thyroid, supraclavicular groove. Extremities: Skin warm and dry without no acute lesions, coloration, temperature, skin intact, no tenderness or erythema. Integument: Hairy patches: Absent Dorsal skin dimples: Absent Cafe au lait spots: Absent Surgical incisions: Healing well clean dry and intact fluid in place Palpation: Please see Pain drawing on Intake sheet for further detail. (Tenderness = T, Nontender = NT, Swelling = S, Ecchymosis = E) Findings on Midline and paraspinal palpation and percussion: Cervical: Tender to palpation over the the incisional site Thoracic: NT Lumbar: NT Sacral: NT Special findings: There is some tracheal deviation noted when looking midline however the patient has had revision surgery. He has some pain with palpation on the left-hand side as well. POSTURAL and MUSCULO-SKELETAL EVALUATION: Coronal Balance: Neutral Recumbent testing: Patient can lay flat on back Sagittal Balance: [Neutral] Shoulder Profile: [Level] Pelvic Girdle: [Level] Neck ROM: Restricted with pain at this time Lumbar ROM: [Unrestricted in six directions] Shoulder ROM: Symmetric in abduction, ER/IR Hip ROM: Symmetric in abduction, adduction, ER/IR Knee ROM: Symmetric and intact in Flexion / extension Hands: Normal appearing structure L and R Feet: Normal appearing structure L and R VASCULAR STATUS : Wrist Pulses: [2/4 bilateral radial and ulnar] Pedal Pulses: [2/4 bilateral DP and PT] Color: [Normal] Edema: [None] NEUROLOGIC EXAMINATION: Mental Status: Awake and alert, fully oriented, with normal attention, concentration and memory, and fluent, appropriate speech. Cranial Nerves: I: Olfactory not tested. II: Visual acuity normal, no visual field deficit noted with confrontation. III,IV: Normal pupillary reflexes & intact extraocular movements without nystagmus. V,: Intact symmetrical facial sensation. VII: Intact symmetrical facial motor movement VIII: Hearing intact. IX,X: Intact gag, swallow, & normal voice. XI: Sternocleidomastoid, trapezius function intact. XII: Tongue midline with normal movements. Special Tests: L'hermitte's Sign: Absent Spurling'Sign: Absent Bilateral Cubital percussion test: Absent Bilateral Kojo-Tinel sign - Carpal region: Absent Bilateral Straight Leg Raising: Absent Bilateral Motor Exam (0-5/5, N/T) STRENGTH UPPER EXTREMITY [5]/5 in all major muscle groups of the UE b/l [Except:] LOWER EXTREMITY [5]/5 in all major muscle groups of the LE b/l [Except:] REFLEXES Upper Extremity: RIGHT - [2]/4 LEFT - [2]/4 Lower Extremity: RIGHT - [2]/4 LEFT - [2]/4 Pathological Reflexes Turcios's: RIGHT - [Absent] LEFT - [Absent] Babinski: RIGHT - [Absent] LEFT - [Absent] Clonus: RIGHT-[None] LEFT- [None] SENSORY Pain and LT sense RIGHT: [Intact C5-T1 and L2-S1] LEFT: [Intact C5-T1 and L2-S1] Dermatomal deficit:States that his dermatomal deficits from before actually returning and he can feel more of his left Thumb now Gait and Functional Evaluation: Ambulatory aids: None Results CT of the cervical spine as well as CT of the soft tissue the neck are reviewed and demonstrate a fluid collection was prevertebral over the surgical bed. This is a 3 x 5 x 4 cm. There is a lot of tracheal edema noted within this exam. There is no occlusion that can be seen however there is slight midline deviation secondary to mass effect of this likely hematoma in the area. It appears stable however and likely congealed. There is no Acute processes with the hardware is in good position with good alignment and decompression. No other acute processes noted - Labs Labs: Abnormal Lab Results - Last 24 Hours (Table) 12/28/24 12/28/24 Range/Units 19:56 19:56 RBC 4.17 L (4.30-5.90) m/uL Hgb 12.5 L (13.0-17.5) gm/dL Hct 38.3 L (39.0-53.0) % Sodium 133 L (137-145) mmol/L Chloride 97 L (98-107) mmol/L BUN 22 H (9-20) mg/dL Glucose 102 H (74-99) mg/dL H & H 12/28/24 Range/Units 19:56 Hgb 12.5 L (13.0-17.5) gm/dL Hct 38.3 L (39.0-53.0) % Result Diagrams: 12/28/24 19:56 12/28/24 19:56 Assessment and Plan Assessment: 64-year-old male status post revision ACDF C3 4 C4 5 with postoperative prev ertebral hematoma Dysphagia Postop swelling Postop pain Plan: I discussed with the patient is clinical signs and symptoms as well as treatment options. At this time the patient is very stable he is having full conversations with me in full sentences his vitals are stable satting 98% on room air. He did receive Decadron as well as Toradol. This is reasonable given his situation. We will continue these on an observation status for the patient. If he is doing well later today we will discharge him. If he needs a night we can continue his medications for pain and swelling purposes and evaluation of the morning. He is very comfortable with this. We discussed that. I have to go back into remove this congealed hematoma that we will not increase his risk of infection as well as further problems the patient understands and agrees. He would like to go the conservative route with medications. His son is at bedside and agrees as well. We will continue treatment with Decadron and Toradol at this time. He can ice packs for his neck. He continues to use the hard cervical collar. He may ambulate with assist. We will provide pain control is here. He will likely be discharged home later today.
[2024-12-29 09:06] LABS: HGB 13.4 gm/dL (13.0-17.5); Hypochromasia Slight; MCH 29.7 pg (25.0-35.0); MCHC 31.8 g/dL (31.0-37.0); MCV 93.4 fL (80.0-100.0); Mean Platelet Volume 7.5; Platelet Count 347 k/uL (150-450); RDW 13.8 % (11.5-15.5); WBC 3.7 k/uL (3.8-10.6)
[2024-12-29] MEDS: DEXAMETHASONE SOD PHOSPHATE 10 MG/ML 1 ML VIAL IVP SCH (09:09)
[2024-12-29] MEDS: KETOROLAC 15 MG/ML 1 ML VIAL IVP SCH (09:09)
[2024-12-29] MEDS: PANTOPRAZOLE 40 MG TABLET PO SCH (09:10)
[2024-12-29] MEDS: lisinopriL 20 MG TAB PO SCH (09:11)
[2024-12-29 09:44] LABS: ALT 29 U/L (4-49); AST 21 U/L (17-59); African American GFR (CKD) >90 (>60 ml/min/1.73 sqM); Albumin 4.7 g/dL (3.5-5.0); Alkaline Phosphatase 86 U/L (38-126); Anion Gap 12 mmol/L; Blood Urea Nitrogen 18 mg/dL (9-20); Calcium 10.2 mg/dL (8.4-10.2); Carbon Dioxide 29 mmol/L (22-30); Chloride 96 mmol/L (98-107); Glucose 121 mg/dL (74-99); Magnesium 2.2 mg/dL (1.6-2.3); Non-African American GFR(CKD) >90 (>60 ml/min/1.73 sqM); Potassium 4.6 mmol/L (3.5-5.1); Sodium 137 mmol/L (137-145); Total Bilirubin 0.5 mg/dL (0.2-1.3); Total Protein 7.8 g/dL (6.3-8.2)
--- NOTE | 2024-12-29 12:23 | P.CONS ---
History of Present Illness - Reason for Consult Consult date: 12/29/24 Medical Management Requesting physician: Blayne Campos - History of Present Illness History of Presenting Illness: Patient is a pleasant 64-year-old male with a past medical history of CAD status post CABG x 3, hypertension, GERD, prostate cancer status post prostatectomy, osteoarthritis, previous spinal fusion x 3, and recent cervical discectomy and fusion on 12/20/2024. Patient presented to the emergency department on 12/28/2024 with a chief complaint of difficulty swallowing, coughing, and feeling as though he was having a difficult time breathing secondary to swelling in his throat. Upon arrival to our facility, patient underwent evaluation in the emergency department. Vital signs upon arrival show blood pressure 179/107, heart rate 83, respiratory rate 18, temp 97.7 F, and SpO2 of 97% on room air. Labs completed and reviewed. CBC showing normocytic anemia with hemoglobin of 12.5. BMP showing mild hyponatremia with sodium of 133, chloride 97, and slightly elevated BUN of 22. Blood glucose was 102. Liver profile unremarkable. Lactic acid normal findings at 0.9. CT cervical spine and soft tissues of neck showing significant retropharyngeal and laryngeal edema with severe narrowing of the airway at level C3-C4 and the supraglottic/glottic/subglottic regions with an air-fluid collection in the right prevertebral soft tissues measuring 3.8 x 1.6 x 3.5 cm creating a leftward mass effect on the pharynx and subglottic airway. Patient was given IV Decadron and underwent evaluation by orthospine surgeon. Recommending continued medical management with IV steroids and NSAIDs. Patient was admitted under orthospine surgery team and we were consulted for medical management throughout hospitalization. Patient was seen and fully evaluated in the ER 9, he reports feeling significant improvement since arrival to our facility. He is maintaining airway and reports being able to clear secretions without any difficulties at this time. SpO2 94% on room air. Patient reports able to swallow much better since starting the steroids. He denies having any hematemesis, further episodes of coughing, and denies any shortness of breath. Patient reports pain is currently controlled, hard c-collar remains in place. Patient admits ro feeling anxious stating steroids always make him feel this way, but denies any other complaints, questions, or concerns at this time. Patient declined wanting any medication to assist with his anxiety at this time. Review of systems: Pertinent positives and negatives as discussed in HPI, a complete review of systems was performed and all other systems are negative. Physical exam: Vital signs reviewed and stable. BP elevated 156/112 with heart rate of 77, however pt reports he has not been able to take his BP medication in a week secondary to difficulty swallowing and now that he reports significant improvement will resume this morning. General: Nontoxic, no distress and appears stated age. Derm: Skin warm and dry, normal coloration for ethnicity. Head: Atraumatic, normocephalic and symmetric. Hard cervical collar in place. Postoperative incision to right lateral neck well-approximated and appears to be healing well. Patient does have mild swelling to right lateral neck Eyes: EOM's intact, no lid lag, and anicteric sclera Mouth: no lip lesions, mucus membranes moist Cardiovascular: regular rate and rhythm with normal S1S2, no murmur, positive posterior tibial pulses bilaterally, and cap refill < 2 seconds. Lungs: Respirations even, regular, and unlabored on room air. Lungs CTA bilaterally, No stridor, no rhonchi, no rales, no wheezing, and no accessory muscle usage. SpO2 94% on room air. Abdominal: soft, nontender to palpation, no guarding, no appreciable organomegaly Ext: ROM intact. No gross muscle atrophy, no edema, no contractures Neuro: Speech clear, face symmetrical and CN II-XII grossly intact with no noted focal neuro deficits Psych: Alert and oriented to person, place, time, and situation. Appropriate and pleasant affect. Assessment and Plan of Care: Dysphagia, secondary to retropharyngeal and laryngeal edema with severe narrowing of airway and postoperative hematoma Status post anterior cervical discectomy and fusion on 12/20/2024 Postoperative pain -Continue IV Decadron 6 mg IVP every 6 hours and scheduled Toradol 15 mg IVP every 6 hours. -Aspiration precautions in place. -Patient to remain on continuous pulse oximetry. He is maintaining airway and reports being able to clear secretions without any difficulties at this time. SpO2 94% on room air. -Patient to remain on continuous telemetry monitoring. -Maintain C-spine precautions -If oxygen saturations decrease or if patient again begins to develop dysphagia recommend emergent/urgent consult to linter drier operator. Hypertensive urgency upon arrival History of CAD status post CABG x 3 -BP remains elevated but improved since arrival to our facility. Patient reports he has not been able to take his BP medication in a week secondary to difficulty swallowing and now that he reports significant improvement will resume this morning. -Monitor vital signs and resume lisinopril 20 mg daily. GERD -Resume Protonix 40 mg daily. Data and imaging reviewed: -As stated above in HPI Thank you for allowing us to participate in the care of this pleasant patient. Do not hesitate to contact us with questions. Someone can be reached from the [facility] [place] hospitalist group all hours of the day at [phone] or via [employer]. Patient was seen independently by Nurse Practitioner. This document was prepared using [employer] dictation software. Please allow for errors in senior medical transcriptionist while rare they do occur. Lauri Palacios NP rendered care for this patient independently, reviewed the findings and plan as documented in the note above and agree with plan. I did not physically speak with or examine the patient on this date. Past Medical History Past Medical History: Cancer, GERD/Reflux, Hypertension, Musculoskeletal Disorder, Osteoarthritis (OA), Sleep Apnea/CPAP/BIPAP Additional Past Medical History / Comment(s): does not use CPAP. hx. prostate cancer History of Any Multi-Drug Resistant Organisms: None Reported Past Surgical History: Adenoidectomy, Back Surgery, Cholecystectomy, Coronary Bypass/CABG, Orthopedic Surgery, Prostate Surgery, Tonsillectomy Additional Past Surgical History / Comment(s): Spinal fusion x3. cerical fusion, 5 total carpal tunnel surgeries. ( both sides) , triple bypass surgery 20 yrs. ago approx., prostatectomy, spinal fusion 2024 Past Anesthesia/Blood Transfusion Reactions: No Reported Reaction Past Psychological History: Depression Smoking Status: Current every day smoker Past Alcohol Use History: None Reported Past Drug Use History: None Reported - Past Family History Father Family Medical History: Coronary Artery Disease (CAD) Mother Family Medical History: Dementia Brother(s) Family Medical History: Coronary Artery Disease (CAD) Medications and Allergies Home Medications Medication Instructions Recorded Confirmed Type Omeprazole 40 mg PO DAILY 11/25/22 12/29/24 History lisinopriL [Zestril] 20 mg PO DAILY 11/25/22 12/29/24 History Allergies Allergy/AdvReac Type Severity Reaction Status Date / Time No Known Allergies Allergy Verified 12/29/24 07:36 Physical Exam Vitals: Vital Signs Temp Pulse Resp BP Pulse Ox 12/29/24 04:52 97.6 F 97 17 154/87 95 12/28/24 23:10 72 16 173/93 96 12/28/24 21:00 76 16 156/91 99 12/28/24 19:28 97.7 F 83 18 179/107 97 Intake and Output 12/28/24 12/29/24 12/29/24 22:59 06:59 14:59 Other: Weight 76.204 kg Results CBC & Chem 7: 12/29/24 08:40 12/29/24 08:40 Labs: Abnormal Lab Results - Last 24 Hours (Table) 12/28/24 12/28/24 Range/Units 19:56 19:56 RBC 4.17 L (4.30-5.90) m/uL Hgb 12.5 L (13.0-17.5) gm/dL Hct 38.3 L (39.0-53.0) % Sodium 133 L (137-145) mmol/L Chloride 97 L (98-107) mmol/L BUN 22 H (9-20) mg/dL Glucose 102 H (74-99) mg/dL
[2024-12-29] MEDS: DEXAMETHASONE SOD PHOSPHATE 4 MG/ML 1 ML VIAL IVP SCH (21:09)
[2024-12-30 06:38] LABS: HCT 36.3 % (39.0-53.0); HGB 12.1 gm/dL (13.0-17.5); MCH 30.8 pg (25.0-35.0); MCHC 33.2 g/dL (31.0-37.0); MCV 92.9 fL (80.0-100.0); Mean Platelet Volume 7.4; Platelet Count 313 k/uL (150-450); RBC 3.91 m/uL (4.30-5.90); RDW 13.8 % (11.5-15.5); WBC 6.1 k/uL (3.8-10.6)
[2024-12-30 06:50] LABS: ALT 22 U/L (4-49); AST 17 U/L (17-59); African American GFR (CKD) >90 (>60 ml/min/1.73 sqM); Albumin 3.9 g/dL (3.5-5.0); Alkaline Phosphatase 72 U/L (38-126); Anion Gap 7 mmol/L; Blood Urea Nitrogen 18 mg/dL (9-20); Calcium 9.4 mg/dL (8.4-10.2); Carbon Dioxide 28 mmol/L (22-30); Chloride 101 mmol/L (98-107); Glucose 126 mg/dL (74-99); Magnesium 2.2 mg/dL (1.6-2.3); Non-African American GFR(CKD) >90 (>60 ml/min/1.73 sqM); Potassium 4.5 mmol/L (3.5-5.1); Sodium 136 mmol/L (137-145); Total Bilirubin 0.4 mg/dL (0.2-1.3); Total Protein 6.4 g/dL (6.3-8.2)
--- NOTE | 2024-12-30 09:26 | P.PN ---
Subjective Progress Note Date: 12/30/24 Principal diagnosis: Status post revision ACDF C3-C5, postoperative prevertebral hematoma Patient was evaluated today at bedside, he is fully dressed and sitting up in his hospital chair with his rigid c-collar in place. Patient feels that the swallowing is much improved since being in the hospital, he has been taking Decadron and Toradol. Patient does not feel short of breath at this time. He denies any shanita weakness to the bilateral upper or lower extremities. He angelia es headaches, lightheadedness, chest pain or shortness of breath Objective - Vital Signs Vital signs: Vital Signs Temp 97.9 F 12/29/24 20:00 Pulse 71 12/30/24 03:55 Resp 16 12/30/24 03:55 BP 151/86 12/30/24 03:55 Pulse Ox 95 12/30/24 03:55 FiO2 Intake & Output 12/29/24 12/30/24 12/30/24 18:59 06:59 18:59 Intake Total 780 Balance 780 Weight 76.204 kg 73.4 kg Intake: Oral 780 Other: Voiding Method Toilet Toilet # Voids 3 - Exam Gen: AOx3, NAD VSS stable at this time Integument: Incision to the right side anterior neck is well-healing, surgical glue is in good position and condition. There is some minor swelling anterior to the incision Palpation: Minimal tenderness with palpation to the right sided anterior neck ROM: Full range of motion all major muscle groups of bilateral upper and lower extremities, no focal deficits appreciated Sensory Exam: Senory exam to light touch is intact C5-T1 Senosry exam to light touch is intact L2-S1 Motor: 5/5 strength appreciate the bilateral upper extremities with shoulder elevation, shoulder abduction, elbow extension, elbow flexion, wrist extension, wrist flexion, veneer jointer operator 5/5 strength appreciated bilateral lower extremities with hip flexion, knee extension, knee flexion, plantarflexion, dorsiflexion, EHL, FHL Reflexes: 2/4 in all UE and LE Negative Vijay's bilaterally Negative clonus bilaterally - Labs CBC & Chem 7: 12/30/24 06:00 12/30/24 05:47 Labs: Abnormal Lab Results - Last 24 Hours (Table) 12/29/24 12/30/24 12/30/24 Range/Units 08:40 05:47 06:00 RBC 3.91 L (4.30-5.90) m/uL Hgb 12.1 L (13.0-17.5) gm/dL Hct 36.3 L (39.0-53.0) % Sodium 136 L (137-145) mmol/L Chloride 96 L (98-107) mmol/L Creatinine 0.59 L 0.60 L (0.66-1.25) mg/dL Glucose 121 H 126 H (74-99) mg/dL Assessment and Plan Assessment: Postoperative day #10 status post revision ACDF C3-C5 Postoperative prevertebral hematoma, improving Difficulty swallowing, improving Plan: Patient seems to be improving while taking the Toradol and IV Decadron. Discussed options for discharge today with the patient, this to include the use of a Medrol Dosepak C-collar instructions were again discussed with the patient Patient has pain medicatio from his surgery last week We discussed advancing his diet, recommending a softer diet to start and then advancing as tolerated Activity level restrictions were discussed, this to include bending, lifting and twisting restrictions Medical recommendations appreciated Discharge planning: Will reevaluate patient later morning/early afternoon, likely discharge to home Time with Patient: Less than 30
--- NOTE | 2024-12-30 12:17 | P.PN ---
Subjective Progress Note Date: 12/30/24 Hospital course: Patient is a pleasant 64-year-old male with a past medical history of CAD status post CABG x 3, hypertension, GERD, prostate cancer status post prostatectomy, osteoarthritis, previous spinal fusion x 3, and recent cervical discectomy and fusion on 12/20/2024. Patient presented to the emergency department on 12/28/2024 with a chief complaint of difficulty swallowing, coughing, and feeling as though he was having a difficult time breathing secondary to swelling in his throat. Upon arrival to our facility, patient underwent evaluation in the emergency department. Vital signs upon arrival show blood pressure 179/107, heart rate 83, respiratory rate 18, temp 97.7 F, and SpO2 of 97% on room air. Labs completed and reviewed. CBC showing normocytic anemia with hemoglobin of 12.5. BMP showing mild hyponatremia with sodium of 133, chloride 97, and slightly elevated BUN of 22. Blood glucose was 102. Liver profile unremarkable. Lactic acid normal findings at 0.9. CT cervical spine and soft tissues of neck showing significant retropharyngeal and laryngeal edema with severe narrowing of the airway at level C3-C4 and the supraglottic/glottic/subglottic regions with an air-fluid collection in the right prevertebral soft tissues measuring 3.8 x 1.6 x 3.5 cm creating a leftward mass effect on the pharynx and subglottic airway. Patient was given IV Decadron and underwent evaluation by orthospine surgeon. Recommending continued medical management with IV steroids and NSAIDs. Patient was admitted under orthospine surgery team and we were consulted for medical management throughout hospitalization. Physical exam: Patient seen and fully evaluated at bedside this morning. He reports his swallowing is much better since arrival to our facility, states he can still tell just a little bit like when he first drank his coffee this morning that it was more difficult than baseline but states much improvement since arrival to our facility. He denies having any shortness of breath, coughing, nausea or vomiting, or any other complaints. He reports his postoperative pain "is there" but controlled at this time. Vital signs reviewed and stable. General: Nontoxic, no distress and appears stated age. Derm: Skin warm and dry, normal coloration for ethnicity. Head: Atraumatic, normocephalic and symmetric. Hard cervical collar in place. Postoperative incision to right lateral neck well-approximated and appears to be healing well. Patient does have mild swelling to right lateral neck Eyes: EOM's intact, no lid lag, and anicteric sclera Mouth: no lip lesions, mucus membranes moist Cardiovascular: regular rate and rhythm with normal S1S2, no murmur, positive posterior tibial pulses bilaterally, and cap refill < 2 seconds. Lungs: Respirations even, regular, and unlabored on room air. Lungs CTA bilaterally, No stridor, no rhonchi, no rales, no wheezing, and no accessory muscle usage. SpO2 95% on room air. Abdominal: soft, nontender to palpation, no guarding, no appreciable organomegaly Ext: ROM intact. No gross muscle atrophy, no edema, no contractures Neuro: Speech clear, face symmetrical and CN II-XII grossly intact with no noted focal neuro deficits Psych: Alert and oriented to person, place, time, and situation. Appropriate and pleasant affect. Assessment and Plan of Care: Dysphagia, secondary to retropharyngeal and laryngeal edema with severe narrowing of airway and postoperative hematoma Status post anterior cervical discectomy and fusion on 12/20/2024 Postoperative pain -Continue IV Decadron 6 mg IVP every 6 hours and scheduled Toradol 15 mg IVP every 6 hours. -Aspiration precautions in place. -Patient to remain on continuous pulse oximetry. He is maintaining airway and reports being able to clear secretions without any difficulties at this time. SpO2 94% on room air. -Patient to remain on continuous telemetry monitoring. -Maintain C-spine precautions -If oxygen saturations decrease or if patient again begins to develop dysphagia recommend emergent/urgent consult to junior systems analyst. -Patient admitted under primary orthospine surgery team. Hypertensive urgency upon arrival History of CAD status post CABG x 3 -Monitor vital signs and continue medication regimen with lisinopril 20 mg daily. GERD -Resume Protonix 40 mg daily. Data and imaging reviewed: -Vital signs reviewed. Blood pressure 150/83, heart rate 72, respiratory rate 14, temp 97.9 F, and SpO2 of 95% on room air -Morning labs reviewed. CBC showing stable normocytic anemia with hemoglobin of 12.1. BMP showing sodium 136 and blood glucose 126 otherwise normal findings. Magnesium 2.2. Liver profile unremarkable. Thank you for allowing us to participate in the care of this pleasant patient. Do not hesitate to contact us with questions. Someone can be reached from the [facility] hospitalist group all hours of the day at [phone] or via [employer] serve. Patient was seen independently by Nurse Practitioner. This document was prepared using [employer] dictation software. Please allow for errors in sales ambassador while rare they do occur. Lauri Palacios NP rendered care for this patient independently, reviewed the findings and plan as documented in the note above and agree with plan. I did not physically speak with or examine the patient on this date. Objective - Vital Signs Vital signs: Vital Signs Temp 97.9 F 12/29/24 20:00 Pulse 71 12/30/24 03:55 Resp 16 12/30/24 03:55 BP 151/86 12/30/24 03:55 Pulse Ox 95 12/30/24 03:55 FiO2 Intake & Output 12/29/24 12/30/24 12/30/24 18:59 06:59 18:59 Intake Total 780 118 Balance 780 118 Weight 76.204 kg 73.4 kg Intake: Oral 780 118 Other: Voiding Method Toilet Toilet # Voids 3 - Labs CBC & Chem 7: 12/30/24 06:00 12/30/24 05:47 Labs: Abnormal Lab Results - Last 24 Hours (Table) 12/29/24 12/30/24 12/30/24 Range/Units 08:40 05:47 06:00 RBC 3.91 L (4.30-5.90) m/uL Hgb 12.1 L (13.0-17.5) gm/dL Hct 36.3 L (39.0-53.0) % Sodium 136 L (137-145) mmol/L Chloride 96 L (98-107) mmol/L Creatinine 0.59 L 0.60 L (0.66-1.25) mg/dL Glucose 121 H 126 H (74-99) mg/dL
[2024-12-30 13:21] VITALS: BP 162/81; PULSE 66; RESP 18; TEMP 97.8
--- NOTE | 2024-12-30 13:29 | P.DS ---
Providers Date of admission: 12/28/24 22:54 Attending physician: Blayne Campos DO Consults: 12/28/24 22:50 Consult Physician Urgent Consulting Provider: Arelis Lares Consult Reason/Comments: Medical management Do you want consulting provider notified?: Yes Primary care physician: Jazmine Ness MD Hospital Course: Date of admission: 12/28/2024 Date of discharge: 12/30/2024 Admission diagnosis: Dysphagia, postoperative swelling, history of recent revision ACDF C3-C5 Discharge diagnosis: Same Attending physician: Dr. Campos Surgical procedures: None Brief history: Patient is a 64-year-old male with a history of a recent revision ACDF C3-C5. Through the postop period, he noticed difficulty swallowing, shortness of breath and discomfort to the anterior neck, which prompted him to report to [facility]. Patient underwent imaging and lab test with demonstrated a likely hematoma in the surgical area, patient was admitted under orthopedic care for further evaluation. No orthopedic surgical intervention was obtained, conservative measures included IV steroids and anti- inflammatories. Hospital course: Patient's orthopeidc and medical care was provided daily. Patient had daily laboratory tests performed for evaluation of overall blood counts. Discharge condition/disposition: Patient will be discharged home in stable condition. Discharge medications: Instructions are given on resumption of patient's normal daily medications per primary care recommendation, in addition patient will be prescribed Medrol Dosepak, Percocet 5mg/325mg. Spine Discharge and Recovery Instructions All medication refills should be obtained through your primary care doctor or your clinic spine surgeon. Please discuss prescription refills at your follow up appointment. Do not call the hospital for medication refills. Dressing: Leave your dressing in place for a total of 5 days post operatively. Then you may remove your dressing and leave open to air. Keep the area clean and if not able to keep area clean, then cover with sterile gauze and tape. Showering: You may shower 3 days after your procedure allowing soap and water to run over incision. Do not scrub. Do not soak. Blot dry. Follow up: Please confirm a follow up appointment with your surgeon 3 weeks post operatively. Please make an appointment to follow up with your PCP in 1-2 weeks after surgery for evaluation '3 phase, 3-week plan' POST OP WEEKS 1-3 1. Lifting/carrying/pushing/pulling limited to less than 5 pounds. 2. Do not sit for longer than 15 minutes at one time. Get up and walk around. Prolonged sitting is NOT advised. If you lay down, see if you can tolerate laying down on you front (belly side) 3. Walk for periods of 15 minutes = 1 mile but no longer; do it multiple times times each day. 4. Ice your low back after activity. POST OP WEEKS 3-6 1. Lifting limited to less than 20 pounds. 2. Do not sit for longer than 30 minutes at a time. Frequently change positions. Use a sit-to stand workstation or take frequent breaks from sitting if you have returned to work. 3. Walk for 30 minutes each day. If possible, do these three or more times a day POST OP WEEKS 6+ At your 6-week appointment we will give you a physical therapy referral to focus on a core stabilization and strengthening program. You should also work on leg & buttock strengthening, hamstring & quadriceps stretching, and continue a low impact aerobic activity program such as swimming, walking, or riding a stationary bicycle. During the initial 6 weeks after your surgery, you are at the highest risk of re-injuring your spine. You should generally avoid BLT's (bending, lifting and twisting combination motions) and follow the above guidelines to reduce the chance of reinjury. You can anticipate post op appointments in our office at approximately 3 weeks and 6 weeks after your surgery. INCISION CARE: If your incision is not draining you do NOT need to cover it with a dressing. Keep your incision clean, dry and intact. In most cases, we apply skin glue, magalys or sutures to the incision at the time of surgery. This will be like a crust or have the appearance of a scab and will fall off in time on its own. The stitches or magalys need to be removed at 3 weeks post op appointment. You may begin to shower 3 days after surgery (this allows the glue to sylvester well). However, please avoid scrubbing the incision site or peeling off any of the skin glue. This will ensure optimal healing of your incision. Also, during this time avoid soaking the incision area in water - this includes swimming pools, hot tubs or baths. No ointments, lotions or oils on the incision until your surgeon allows. Leave magalys, sutures or glue in place. Neurological dysfunction that comes on suddenly can also be a sign of a stroke. Below some common symptoms of a stroke are listed: B - balance difficulty such as sudden onset walking or leaning to one side - NEW E - eye problem such as sudden double vision or trouble seeing on one side - NEW F - Facial weakness or numbness on one side - NEW A - Arm or leg weakness or numbness on one side - NEW S - Slurred speech or difficulty with word finding - NEW T - Time is BRAIN! Call 911 as soon as you recognize these symptoms Diet: Consume a regular diet rich in vegetables and lean protein such as chicken or fish. You should consume in a ratio of approximately 20% fats|40% carbohydrates|40%protein. Vegetables, sweet potatoes, brown rice or quinoa are examples of good carbohydrates. Chips, white bread, cookies and sweets/sugar ar e examples of bad carbohydrates. Limit your bad carbs, go wild with good carbs. "Life's Simple 7" Guidelines as per [place] [employer] These will help you reclaim your life after surgery and joy operator helper in your recovery, keeping in mind your restrictions. (1) Get Active. Physical activity can help people lose weight, control high blood pressure and cholesterol, feel emotionally better, and sleep better. (2) Control Cholesterol. Avoid a diet high in saturated fat, trans fat, & cholesterol. Limit whole milk & cream, ice cream, butter, egg yolks, processed meats (like sausage and hot dogs), and fatty meats. Choose healthy foods that are low in saturated fat, trans fat and cholesterol which include: Fruits and vegetables, fiber rich grain products (like whole g rain pasta and brown rice), lean meat such as chicken, fish, nuts, seeds, and legumes. (3) Eat Better. Eat small portions. Shop at the grocery with a list and do not stray from it. Tips for a healthy diet include: Limit sodium intake to less than 1500mg daily, avoid prepackaged, processed, and fast foods, choose a diet rich in fruits, vegetables, and whole grain, high fiber foods, and limit saturated & cholesterol in your diet. (4) Manage Blood Pressure. If you have high blood pressure, you should have a cuff at home so that you can check your blood pressure regularly. Be sure you have a good cuff. An arm one is generally better than a wrist one. Bring the cuff to a doctor's appointment to validate that the measurements that your cuff are taking are accurate. Take your blood pressure twice daily when you are sitting down and relaxing. Record the numbers in a log and bring this log with you to your doctors' appointments. (5) Lose Weight if your BMI is above 25. A healthy BMI is between 19-25. To calculate Your BMI, you may use a Standard BMI Calculator on the NIH BMI website: <www.nhlbi.nih.gov/guidelines/obesity/BMI/bmicalc.htm>. Weigh oneself daily. If you are overweight, set a goal to lose weight. A pound a week loss if needed is a good target. (6) Reduce Blood Sugar. Limit foods and liquids with "added sugars." (Added sugars include sucrose, fructose, glucose, maltose, dextrose, high fructose corn syrup, corn syrup, concentrated fruit juice and honey). (7) Stop Smoking. If you smoke, quitting smoking is one of the best things that you can do for your health. Smoking increases your risk of heart attack, stroke, and peripheral vascular disease, which is a build-up of plaque in your arteries. Please discard all the cigarettes and lighters in your house. Have a plan for what you will do when you have the urge to smoke. Direct and second- hand smoke shortens your life as well as the lives of your family, friends and others around you. For your health and the health of those around you, please consider quitting! Proper Bending Body Mechanics: Maintain a wide stance with one foot slightly in front of the other. Keep your back straight. Bend utilizing the strength in your hips and knees. Do not bend at the waist. Maintain the lifted object at your waist-level close to your body. Avoid lifting weight that causes immediately pain or pain anywhere in the body afterwards. Smoking/Nicotine If there was ever one thing that you could do to increase your overall health, decrease your risk of cardiovascular problems by about 39% the second you make the choice, it is to STOP SMOKING. Your body's most instant gratification is the second you stop smoking. We have all heard the studies, read the articles but it is true, smoking is extremely bad for your overall health, and moreover it is detrimental to your bone health. Nicotine, IN ANY FORM, kills bone cells, prevents your body from healing fractures, and significantly prolongs healing after surgery. In spine surgery specifically, it increases your risk of not healing your bones to create a fusio n and increases your risk of having a revision surgery due to this up to 60%. I know it is hard. I know it feels impossible. But there are ways. Take control of your life. We are here to help you through it. And when you are ready, ask us and we can direct you to help if you desire. Use the START Plan to Quit Smoking (please visit the Helpguide.org website listed below for more information): S = Set a quit date. Choose a date within the next 2 weeks, so you have enough time to prepare without losing your motivation to quit. If you mainly smoke at work, quit on the weekend, so you have a few days to adjust to the change. T = Tell family, friends, and co-workers that you plan to quit. Let your friends and family in on your plan to quit smoking and tell them you need their support and encouragement to stop. Look for a quit tai who wants to stop smoking as well. You can help each other get through the rough times. A = Anticipate and plan for the challenges you'll face while quitting. Most people who begin smoking again do so within the first 3 months. You can help yourself make it through by preparing ahead for common challenges, such as nicotine withdrawal and cigarette cravings. R = Remove cigarettes and other tobacco products from your home, car, and work. Throw away all your cigarettes (no emergency pack!), lighters, ashtrays, and matches. Wash your clothes and freshen up anything that smells like smoke. Shampoo your car, clean your drapes and carpet, and steam your furniture. T = Talk to your doctor about getting help to quit. Your doctor can prescribe medication to help with withdrawal and suggest other alternatives. If you can't see a doctor, you can get many products over the counter at your local pharmacy or grocery store, including the nicotine patch, nicotine lozenges, and nicotine gum. Resources for Quitting Smoking: <https://www.[place].gov/documents/[facility]/Quit_Tobacco_Resources_for_patients_313 480_7.pdf> Supplementation: Take recommended dosages of Vitamin D and Calcium to help fortify your bones and help them to heal. See your health maintenance packet for dosages and recommended levels. DVT/VTE prophylaxis: You will be given compression stockings from the hospital. Wear these daily for the first two weeks after surgery. You may take them off at night. You may be prescribed a medication to help thin your blood. Take this as directed. If you are not prescribed this medication, early and frequent ambulation has been shown to be the best prophylaxis to deep vein thrombosis and sequelae related to this event. Procedures: None Patient Condition at Discharge: Serious Plan - Discharge Summary Discharge Rx Participant: Yes New Discharge Prescriptions: New methylPREDNISolone Dose Pack [Medrol Dose Pack] 4 mg PO DIRECTED #1 packet oxyCODONE-APAP 5-325MG [Percocet 5-325 mg] 1 tab PO Q8HR PRN 7 Days #21 tab PRN Reason: Pain Continue Omeprazole 40 mg PO DAILY lisinopriL [Zestril] 20 mg PO DAILY Discharge Medication List Omeprazole 40 mg PO DAILY 11/25/22 [History] lisinopriL [Zestril] 20 mg PO DAILY 11/25/22 [History] methylPREDNISolone Dose Pack [Medrol Dose Pack] 4 mg PO DIRECTED #1 packet 12/30/24 [Rx] oxyCODONE-APAP 5-325MG [Percocet 5-325 mg] 1 tab PO Q8HR PRN 7 Days #21 tab 12/30/24 [Rx] Follow up Appointment(s)/Referral(s): Jazmine Ness MD [Primary Care Provider] - 1-2 days Blayne Campos DO [Doctor of Osteopathic Medicine] - 1 Week Activity/Diet/Wound Care/Special Instructions: Spine Discharge and Recovery Instructions Medications: See medication list All medication refills should be obtained through your primary care doctor or your clinic spine surgeon. Please discuss prescription refills at your follow up appointment. Do not call the hospital for medication refills. Dressing: Leave your dressing in place for a total of 5 days post operatively. Then you may remove your dressing and leave open to air. Keep the area clean and if not able to keep area clean, then cover with sterile gauze and tape. Showering: You may shower 3 days after your procedure allowing soap and water to run over incision. Do not scrub. Do not soak. Blot dry. Follow up: Please confirm a follow up appointment with your surgeon 3 weeks post operatively. Please make an appointment to follow up with your PCP in 1-2 weeks after surgery for evaluation '3 phase, 3-week plan' POST OP WEEKS 1-3 1. Lifting/carrying/pushing/pulling limited to less than 5 pounds. 2. Do not sit for longer than 15 minutes at one time. Get up and walk around. Prolonged sitting is NOT advised. If you lay down, see if you can tolerate laying down on you front (belly side) 3. Walk for periods of 15 minutes = 1 mile but no longer; do it multiple times times each day. 4. Ice your low back after activity. POST OP WEEKS 3-6 1. Lifting limited to less than 20 pounds. 2. Do not sit for longer than 30 minutes at a time. Frequently change positions. Use a sit-to stand workstation or take frequent breaks from sitting i f you have returned to work. 3. Walk for 30 minutes each day. If possible, do these three or more times a day POST OP WEEKS 6+ At your 6-week appointment we will give you a physical therapy referral to focus on a core stabilization and strengthening program. You should also work on leg & buttock strengthening, hamstring & quadriceps stretching, and continue a low impact aerobic activity program such as swimming, walking, or riding a stationary bicycle. During the initial 6 weeks after your surgery, you are at the highest risk of re-injuring your spine. You should generally avoid BLT's (bending, lifting and twisting combination motions) and follow the above guidelines to reduce the chance of reinjury. You can anticipate post op appointments in our office at approximately 3 weeks and 6 weeks after your surgery. INCISION CARE: If your incision is not draining you do NOT need to cover it with a dressing. Keep your incision clean, dry and intact. In most cases, we apply skin glue, magalys or sutures to the incision at the time of surgery. This will be like a crust or have the appearance of a scab and will fall off in time on its own. The stitches or magalys need to be removed at 3 weeks post op appointment. You may begin to shower 3 days after surgery (this allows the glue to sylvester well). However, please avoid scrubbing the incision site or peeling off any of the skin glue. This will ensure optimal healing of your incision. Also, during this time avoid soaking the incision area in water - this includes swimming pools, hot tubs or baths. No ointments, lotions or oils on the incision until your surgeon allows. Leave magalys, sutures or glue in place. Neurological dysfunction that comes on suddenly can also be a sign of a stroke. Below some common symptoms of a stroke are listed: B - balance difficulty such as sudden onset walking or leaning to one side - NEW E - eye problem such as sudden double vision or trouble seeing on one side - NEW F - Facial weakness or numbness on one side - NEW A - Arm or leg weakness or numbness on one side - NEW S - Slurred speech or difficulty with word finding - NEW T - Time is BRAIN! Call 911 as soon as you recognize these symptoms Diet: Consume a regular diet rich in vegetables and lean protein such as chicken or fish. You should consume in a ratio of approximately 20% fats|40% carbohydrates|40%protein. Vegetables, sweet potatoes, brown rice or quinoa are examples of good carbohydrates. Chips, white bread, cookies and sweets/sugar are examples of bad carbohydrates. Limit your bad carbs, go wild with good carbs. "Life's Simple 7" Guidelines as per [place] [employer] These will help you reclaim your life after surgery and joy operator helper in your recovery, keeping in mind your restrictions. (1) Get Active. Physical activity can help people lose weight, control high blood pressure and cholesterol, feel emotionally better, and sleep better. (2) Control Cholesterol. Avoid a diet high in saturated fat, trans fat, & cholesterol. Limit whole milk & cream, ice cream, butter, egg yolks, processed meats (like sausage and hot dogs), and fatty meats. Choose healthy foods that are low in saturated fat, trans fat and cholesterol which include: Fruits and vegetables, fiber rich grain products (like whole grain pasta and brown rice), lean meat such as chicken, fish, nuts, seeds, and legumes. (3) Eat Better. Eat small portions. Shop at the grocery with a list and do not stray from it. Tips for a healthy diet include: Limit sodium intake to less than 1500mg daily, avoid prepackaged, processed, and fast foods, choose a diet rich in fruits, vegetables, and whole grain, high fiber foods, and limit saturated & cholesterol in your diet. (4) Manage Blood Pressure. If you have high blood pressure, you should have a cuff at home so that you can check your blood pressure regularly. Be sure you have a good cuff. An arm one is generally better than a wrist one. Bring the cuff to a doctor's appointment to validate that the measurements that your cuff are taking are accurate. Take your blood pressure twice daily when you are sitting down and relaxing. Record the numbers in a log and bring this log with you to your doctors' appointments. (5) Lose Weight if your BMI is above 25. A healthy BMI is between 19-25. To calculate Your BMI, you may use a Standard BMI Calculator on the NIH BMI website: <www.nhlbi.nih.gov/guidelines/obesity/BMI/bmicalc.htm>. Weigh oneself daily. If you are overweight, set a goal to lose weight. A pound a week loss if needed is a good target. (6) Reduce Blood Sugar. Limit foods and liquids with "added sugars." (Added sugars include sucrose, fructose, glucose, maltose, dextrose, high fructose corn syrup, corn syrup, concentrated fruit juice and honey). (7) Stop Smoking. If you smoke, quitting smoking is one of the best things that you can do for your health. Smoking increases your risk of heart attack, stroke, and peripheral vascular disease, which is a build-up of plaque in your arteries. Please discard all the cigarettes and lighters in your house. Have a plan for what you will do when you have the urge to smoke. Direct and second- hand smoke shortens your life as well as the lives of your family, friends and others around you. For your health and the health of those around you, please consider quitting! Proper Bending Body Mechanics: Maintain a wide stance with one foot slightly in front of the other. Keep your back straight. Bend utilizing the strength in your hips and knees. Do not bend at the waist. Maintain the lifted object at your waist-level close to your body. Avoid lifting weight that causes immediately pain or pain anywhere in the body afterwards. Smoking/Nicotine If there was ever one thing that you could do to increase your overall health, decrease your risk of cardiovascular problems by about 39% the second you make the choice, it is to STOP SMOKING. Your body's most instant gratification is the second you stop smoking. We have all heard the studies, read the articles but it is true, smoking is extremely bad for your overall health, and moreover it is detrimental to your bone health. Nicotine, IN ANY FORM, kills bone cells, prevents your body from healing fractures, and significantly prolongs healing after surgery. In spine surgery specifically, it increases your risk of not healing your bones to create a fusion and increases your risk of having a revision surgery due to this up to 60%. I know it is hard. I know it feels impossible. But there are ways. Take control of your life. We are here to help you through it. And when you are ready, ask us and we can direct you to help if you desire. Use the START Plan to Quit Smoking (please visit the Helpguide.org website li bernadette below for more information): S = Set a quit date. Choose a date within the next 2 weeks, so you have enough time to prepare without losing your motivation to quit. If you mainly smoke at work, quit on the weekend, so you have a few days to adjust to the change. T = Tell family, friends, and co-workers that you plan to quit. Let your friends and family in on your plan to quit smoking and tell them you need their support and encouragement to stop. Look for a quit tai who wants to stop smoking as well. You can help each other get through the rough times. A = Anticipate and plan for the challenges you'll face while quitting. Most people who begin smoking again do so within the first 3 months. You can help yourself make it through by preparing ahead for common challenges, such as nicotine withdrawal and cigarette cravings. R = Remove cigarettes and other tobacco products from your home, car, and work. Throw away all your cigarettes (no emergency pack!), lighters, ashtrays, and matches. Wash your clothes and freshen up anything that smells like smoke. Shampoo your car, clean your drapes and carpet, and steam your furniture. T = Talk to your doctor about getting help to quit. Your doctor can prescribe medication to help with withdrawal and suggest other alternatives. If you can't see a doctor, you can get many products over the counter at your local pharmacy or grocery store, including the nicotine patch, nicotine lozenges, and nicotine gum. Resources for Quitting Smoking: <https://www.[place].gov/documents/[facility]/Quit_Tobacco_Resourc es_for_patients_313480_7.pdf> Supplementation: Take recommended dosages of Vitamin D and Calcium to help fortify your bones and help them to heal. See your health maintenance packet for dosages and recommended levels. DVT/VTE prophylaxis: You will be given compression stockings from the hospital. Wear these daily for the first two weeks after surgery. You may take them off at night. You may be prescribed a medication to help thin your blood. Take this as directed. If you are not prescribed this medication, early and frequent ambulation has been shown to be the best prophylaxis to deep vein thrombosis and sequelae related to this event. Discharge Disposition: HOME SELF-CARE
== END 2024-12-30 14:23 | disposition home or self-care (01) ==
LOC: EC 19:27 → 3SCARD 22:54
PROVIDERS: ADMIT Orthopaedic Surgery; ATTEND Orthopaedic Surgery
DX: M96.840 Postprocedural hematoma of a musculoskeletal structure following a musculoskeletal system procedure (principal); Y83.8 Other surgical procedures as the cause of abnormal reaction of the patient, or of later complication, without mention of misadventure at the time of the procedure; R13.10 Dysphagia, unspecified; G89.18 Other acute postprocedural pain; D64.9 Anemia, unspecified; E87.1 Hypo-osmolality and hyponatremia; F17.210 Nicotine dependence, cigarettes, uncomplicated; I10 Essential (primary) hypertension; I25.10 Atherosclerotic heart disease of native coronary artery without angina pectoris; K21.9 Gastro-esophageal reflux disease without esophagitis; Z79.899 Other long term (current) drug therapy; Z85.46 Personal history of malignant neoplasm of prostate; Z95.1 Presence of aortocoronary bypass graft; Z98.1 Arthrodesis status
CPT/HCPCS: 96376 ×3; 96375 ×2; 96374; 99285; 36415; 80053 ×3; 83605; 83735 ×2; 85025; 85027 ×2; 72126; 70491; G0378 ×3; J1100 ×4; J1885 ×2; Q9967

== ENCOUNTER → 2025-02-23 | Outpatient (CLI) | payer MEDICARE ==
[2025-02-23 15:25] VITALS: BP 123/78; PULSE 88; RESP 12; TEMP 98.2
--- NOTE | 2025-02-23 15:45 | P.SLEEP ---
History of Present Illness DATE: 02/23/2025 CONSULTATION/NEW PATIENT EVALUATION HISTORY OF PRESENT ILLNESS/SLEEP-WAKE EVALUATION: 65-year-old gentleman had b een evaluated in the sleep center for possible obstructive sleep apnea hypopnea syndrome. Patient has history of obstructive sleep apnea diagnosed in the past, but never used CPAP equipment SLEEP SCHEDULE: Usually sleep schedule from 9:30 PM to 4:30 AM 7 days a week. FALLING ASLEEP: Sometimes patient has difficulties with falling asleep. DURING SLEEP: Patient has loud snoring, awakenings from sleep, episodes of stop breathing during the sleep, sweating, choking, dry mouth, heartburn. No history of hypnogogical hallucinations, sleep paralysis, or cataplexy. DURING THE DAY/WAKE STATE: During the day patient has problems with memory, concentration and depression. [place] sleepiness scale is 4. Patient takes 1 nap around noon time. PAST MEDICAL HISTORY: Hypertension, acid reflux, coronary artery disease, prostate cancer. PAST SURGICAL HISTORY: CABG, cholecystectomy, surgical treatment for carpal tunnel syndrome, surgical treatment for prostate cancer. MEDICATIONS: Please see below. SOCIAL HISTORY: Please see below. FAMILY HISTORY: Please see below. REVIEW OF SYSTEMS: Loud snoring, memory problems. No fevers. No double vision. No recent chest pain. No shortness of breath. No abdominal pain. No bleeding episodes. No blood in urine. No seizure episodes. PHYSICAL EXAMINATION: GENERAL: A pleasant patient without any distress. VITAL SIGNS: Please see below, weight 164 pounds, BMI 35.3. HEENT: PERRLA, EOMI. Evaluation of oropharynx showed tongue protrudes midline, low position of soft palate Mallampati 3. NECK: Supple. No JVD. Thyroid is not palpable. 15 inches in circumference. LUNGS: Clear to percussion and to auscultation. Good air exchange. No wheezing or rhonchi. HEART: S1, S2 regular. No murmurs, gallops or rubs. ABDOMEN: Soft and nontender. Bowel sounds are present. No organomegaly appreciated. EXTREMITIES: No clubbing or cyanosis. SEAM STAY STITCHER: Awake, alert, and oriented x3. Cranial nerves 2 to 7 intact. There is no fasciculation or atrophy noted. No focal deficits observed. ASSESSMENT: 1. Loud snoring, awakenings from sleep with choking and sweating, low position of soft palate Mallampati 3, history of obstructive sleep apnea in the past. Obstructive sleep apnea hypopnea syndrome. 2. Hypertension. 3. Coronary artery disease, status post CABG. 4. Status post spinal fusion. 5 history of prostate CA, status post surgical treatment. 6 . Status post cholecystectomy. 7. Status post surgery for carpal tunnel syndrome. 8. Status post tonsillectomy and adenoidectomy PLAN: 1. Polysomnography for evaluation of patient's breathing during sleep. 2. Following plan after reading sleep study. 3. Preferable position during sleep on the side. 4. No driving if patient feels any sleepiness. Patient is aware of civil and criminal liability for unsafe driving. 5. Sleep hygiene with regular sleep time for at least 7.5-8 hours. 6. Watching weight. Thank you very much for referring this patient for consultation. Sincerely, Rohit Estrada MD, PhD, FAASM. Diplomat of [employer], Sleep Medicine Board by [employer] [facility] [place] cc: Oscar Serna DO Past Medical History Past Medical History: Cancer, GERD/Reflux, Hypertension, Musculoskeletal Disorder, Osteoarthritis (OA), Sleep Apnea/CPAP/BIPAP Additional Past Medical History / Comment(s): does not use CPAP. hx. prostate cancer History of Any Multi-Drug Resistant Organisms: None Reported Past Surgical History: Adenoidectomy, Back Surgery, Cholecystectomy, Coronary Bypass/CABG, Orthopedic Surgery, Prostate Surgery, Tonsillectomy Additional Past Surgical History / Comment(s): Spinal fusion x3. cerical fusion, 5 total carpal tunnel surgeries. ( both sides) , triple bypass surgery 20 yrs. ago approx., prostatectomy, spinal fusion 2024 Past Anesthesia/Blood Transfusion Reactions: No Reported Reaction Past Psychological History: Depression Smoking Status: Current every day smoker Past Alcohol Use History: None Reported Additional Past Alcohol Use History / Comment(s): started at 47 yrs old 1 1/2 ppd Past Drug Use History: None Reported - Past Family History Father Family Medical History: Coronary Artery Disease (CAD) Mother Family Medical History: Dementia Brother(s) Family Medical History: Coronary Artery Disease (CAD) Medications and Allergies Home Medications Medication Instructions Recorded Confirmed Type Omeprazole 40 mg PO DAILY 11/25/22 02/23/25 History lisinopriL [Zestril] 20 mg PO DAILY 11/25/22 02/23/25 History Allergies Allergy/AdvReac Type Severity Reaction Status Date / Time No Known Allergies Allergy Verified 12/29/24 07:36 Physical Exam Vitals: Vital Signs Temp Pulse Resp BP Pulse Ox 02/23/25 15:21 98.2 F 88 12 123/78 96 Sleep Note - Sleep Data ESS Total: 4 - Sleep Note Sleep Note: Temperature: 98.2 F Pulse Rate: 88 Respiratory Rate: 12 Blood Pressure: 123/78 SpO2: 96 Height: Weight: BMI: Neck Circumference: 15
== END ==
LOC: 3 N SLEEP 14:23
PROVIDERS: ATTEND Internal Medicine
DX: G47.33 Obstructive sleep apnea (adult) (pediatric) (principal); I10 Essential (primary) hypertension; I25.10 Atherosclerotic heart disease of native coronary artery without angina pectoris; Z95.1 Presence of aortocoronary bypass graft; Z98.1 Arthrodesis status; Z85.46 Personal history of malignant neoplasm of prostate; Z90.49 Acquired absence of other specified parts of digestive tract; Z98.890 Other specified postprocedural states; Z90.89 Acquired absence of other organs
CPT/HCPCS: 99211

== ENCOUNTER → 2025-05-02 | Outpatient (CLI) | payer MEDICARE | END | disposition home or self-care (01) | LOC: LABWHC1 08:57 | PROVIDERS: ATTEND Urology | DX: C61 Malignant neoplasm of prostate (principal) | CPT/HCPCS: 36415; 84153 ==